=== PATIENT | female | born 1975 | race Caucasian/White ===

== ENCOUNTER 2020-09-16 09:49 | Outpatient (REF) | payer BC, SELFPAY ==
[2020-09-16 12:01] LABS: Hemoglobin 13.5 g/dl (12.0-16.0); Mean Corpuscular HGB Conc 32.9 g/dl (31.0-35.0); Mean Corpuscular Hemoglobin 33.4 pg (27.0-33.0); Mean Corpuscular Volume 101.5 fL (80-98); Mean Platelet Volume 10.1 fL (9.4-12.3); Platelet Count 223 X10*3/uL (160-400); Red Blood Count 4.04 X10*6/uL (4.20-5.50); Red Cell Distribution Width 12.3 % (11.0-16.0); White Blood Count 9.5 X10*3/uL (4.8-10.8)
[2020-09-16 12:35] LABS: Thyroid Stimulating Hormone 1.42 uIU/mL (0.32-4.0)
[2020-09-17 08:59] LABS: BV Int Neg Control Negative (Negative); BV Int Pos Control Positive (Positive)
[2020-09-17 09:47] LABS: C. trachomatis RNA TMA NOT DETECTED (NOT DETECTED); N. gonorrhoeae RNA TMA NOT DETECTED (NOT DETECTED)
[2020-09-18 19:12] LABS: HPV mRNA E6/E7 rflx Not Detected (Not Detected)
== END 2020-09-16 09:50 | disposition home or self-care (01) ==
LOC: HO.LAB 09:49
PROVIDERS: PCP Internal Medicine; Visit Provider Advanced Practice Midwife
DX: Z01.411 Encounter for gynecological examination (general) (routine) with abnormal findings (principal); Z11.51 Encounter for screening for human papillomavirus (HPV); N93.9 Abnormal uterine and vaginal bleeding, unspecified; N92.1 Excessive and frequent menstruation with irregular cycle
CPT/HCPCS: 36415; 84443; 85027; 87480; 87491; 87510; 87591; 87624; 87660; 88141; 88142

== ENCOUNTER → 2021-09-17 09:44 | Outpatient (BNVA) | payer BC, SELFPAY | PROVIDERS: PCP Internal Medicine; Visit Provider Advanced Practice Midwife ==

== ENCOUNTER 2021-10-03 08:58 | Outpatient (REF) | payer BC, SELFPAY ==
--- NOTE | ~2021-10-03 | MM_ITS ---
EXAMINATION: MM SCREENING DIGITAL BREAST TOMOSYNTHESIS, BILATERAL CLINICAL INFORMATION: Screening. Asymptomatic. Family history breast cancer, mother. The lifetime risk of breast cancer based on the Tyrer-Cuzick Model is 28%. COMPARISON: Outside mammography: 04/02/2019 ([facility], baseline) TECHNIQUE: Digital breast tomosynthesis is performed in both the craniocaudal and mediolateral oblique views along with computer-aided detection (CAD). Synthesized 2D images are generated from the tomosynthesis. FINDINGS: The breasts are heterogeneously dense, which may obscure small masses (ACR BI-RADS breast composition Category c). There are no significant masses, abnormal calcifications, or other abnormalities. Parenchymal pattern is similar to prior outside exam. The axilla and skin contours are unremarkable. MM/MM tomosynthesis screening BI IMPRESSION: No significant change from prior outside baseline exam. ASSESSMENT: BI-RADS 1: Negative RECOMMENDATION: 1. Routine annual mammography screening. 2. The lifetime risk of breast cancer based on the Tyrer-Cuzick Model is 28%. Additional annual adjunct screening with breast MRI may be of benefit in women with a risk score of 20% or greater. This patient's information was entered into a reminder system with a target due date for their next mammogram.
== END 2021-10-03 08:59 | disposition home or self-care (01) ==
LOC: HO.MAMMO 08:58
PROVIDERS: Visit Provider Advanced Practice Midwife
DX: Z12.31 Encounter for screening mammogram for malignant neoplasm of breast (principal)
CPT/HCPCS: 77063; 77067

== ENCOUNTER 2021-10-08 14:27 | Outpatient (REF) | payer BC, SELFPAY ==
--- NOTE | ~2021-10-08 | US_ITS ---
EXAMINATION: US PELVIS CLINICAL INFORMATION: Abnormal uterine bleeding COMPARISON: None TECHNIQUE: Ultrasound of the pelvis is performed using both transabdominal and transvaginal transducers along with Doppler. Transvaginal imaging is performed due to inadequate visualization transabdominally. FINDINGS: Uterus: The uterus is anteverted and measures 9 x 4.6 x 5 cm. Nabothian cysts are noted at the cervix. The double wall endometrial thickness is 8 mm. The uterus is smooth in contour and has normal myometrial echogenicity. No visible fibroid. Adnexa: Both ovaries are visualized. There is normal color flow to the adnexa. There is no ovarian torsion. There is no pelvic ascites or fluid collection. Right ovary measures 2.6 x 1.6 x 1.3 cm. Left ovary measures 3.1 x 2.2 x 2.6 cm. Abdominal follicle present with no adnexal mass. US/US pelvic and transvaginal IMPRESSION: No suspicious findings. Normal appearance of the uterus.
== END 2021-10-08 14:28 | disposition home or self-care (01) ==
LOC: HO.US 14:27
PROVIDERS: PCP Internal Medicine; Visit Provider Obstetrics & Gynecology
DX: N93.9 Abnormal uterine and vaginal bleeding, unspecified (principal)
CPT/HCPCS: 76830; 76856

== ENCOUNTER 2021-10-22 10:04 | Outpatient (REF) | payer BC, SELFPAY ==
[2021-10-27 04:16] LABS: HPV 16 RNA NOT DETECTED (NOT DETECTED); HPV mRNA E6/E7 rflx Detected (Not Detected)
== END 2021-10-22 10:05 | disposition home or self-care (01) ==
LOC: HO.LAB 10:04
PROVIDERS: PCP Internal Medicine; Visit Provider Advanced Practice Midwife
DX: Z01.411 Encounter for gynecological examination (general) (routine) with abnormal findings (principal); Z11.51 Encounter for screening for human papillomavirus (HPV); R87.610 Atypical squamous cells of undetermined significance on cytologic smear of cervix (ASC-US); Z71.2 Person consulting for explanation of examination or test findings
CPT/HCPCS: 81025; 87624; 87625; 88142

== ENCOUNTER 2021-12-03 08:52 | Outpatient (REF) | payer BC, SELFPAY | END 2021-12-03 08:53 | disposition home or self-care (01) | LOC: HO.LAB 08:52 | PROVIDERS: PCP Internal Medicine; Visit Provider Obstetrics & Gynecology | DX: R87.610 Atypical squamous cells of undetermined significance on cytologic smear of cervix (ASC-US) (principal); R87.810 Cervical high risk human papillomavirus (HPV) DNA test positive; Z32.02 Encounter for pregnancy test, result negative | CPT/HCPCS: 57456; 81025; 88305 ==

== ENCOUNTER 2022-12-30 08:55 | Outpatient (REF) | payer BC, SELFPAY ==
[2023-01-06 02:08] LABS: HPV mRNA E6/E7 rflx Not Detected (Not Detected)
== END 2022-12-30 08:56 | disposition home or self-care (01) ==
LOC: HO.LNP 08:55
PROVIDERS: PCP Internal Medicine; Visit Provider Advanced Practice Midwife
DX: Z01.419 Encounter for gynecological examination (general) (routine) without abnormal findings (principal); Z11.51 Encounter for screening for human papillomavirus (HPV)
CPT/HCPCS: 87624; 88142

== ENCOUNTER 2023-01-03 07:54 | Outpatient (REF) | payer BC, SELFPAY ==
--- NOTE | ~2023-01-03 | MM_ITS ---
EXAMINATION: MM DIAGNOSTIC DIGITAL BREAST TOMOSYNTHESIS, BILATERAL US DIAGNOSTIC ULTRASOUND BREAST, LEFT CLINICAL INFORMATION: 47-year-old with new palpable mass for 2 weeks posterior upper outer left breast, BB size. Family history breast cancer, mother (age 66). TC score 27%. COMPARISON: Mammography: 10/03/2021; 04/02/2019 ([facility]) TECHNIQUE: Digital breast tomosynthesis is performed in both the craniocaudal and mediolateral oblique views along with computer-aided detection (CAD). Synthesized 2D images are generated from the tomosynthesis. Ultrasound left breast is targeted to the area of clinical concern upper outer quadrant using grayscale imaging and color Doppler. Patient is able to directly point to the area of palpable concern at time of imaging. FINDINGS: The breasts are heterogeneously dense, which may obscure small masses (ACR BI-RADS breast composition Category c). Breast tissue composition borders on extremely dense. Parenchymal pattern is similar to prior exams and there is no developing density or interval architectural abnormality. No abnormal calcifications. There are no significant masses, abnormal calcifications, or other abnormalities. No mammographic correlate for patient's symptoms. The axilla and skin contours are unremarkable. Ultrasound demonstrates a 3 x 5 mm nodule with some internal branching color flow likely intramammary node close to area of palpable concern. On clinical assessment, the palpable finding is clearly palpable just beneath the skin. There is no architectural abnormality. No cyst. No skin thickening. Results are discussed with the patient at time of visit. The finding on ultrasound may correspond to the palpable concern. This could represent a tiny intramammary node although central fatty hilus is not well appreciated. The small size may preclude reliable ultrasound-guided sampling. Given that the lesion is clearly palpable and just beneath the skin, surgical consult is recommended for further assessment and management recommendation including excision if clinically indicated. MM/MM tomosynthesis diagnostic BI IMPRESSION: -No mammographic evidence of malignancy. -Question small ultrasound correlate for palpable concern, possibly an intramammary node. The small size may preclude reliable ultrasound-guided sampling. Given that the lesion is clearly palpable and just beneath the skin, surgical consult is recommended for further assessment and management recommendation including excision if clinically indicated. ASSESSMENT: BI-RADS 4: Suspicious (subcategory 4A: Low suspicion for malignancy) RECOMMENDATION: Surgical consult. This patient's information was entered into a reminder system with a target due date for their next mammogram.
== END 2023-01-03 07:55 | disposition home or self-care (01) ==
LOC: HO.MAMMO 07:54
PROVIDERS: Visit Provider Advanced Practice Midwife
DX: N63.21 Unspecified lump in the left breast, upper outer quadrant (principal)
CPT/HCPCS: 76642; 77062; 77066

== ENCOUNTER → 2023-01-07 09:54 | Outpatient (BNVA) | payer BC, SELFPAY | PROVIDERS: PCP Internal Medicine; Referring Provider Radiology Diagnostic Radiology; Visit Provider Surgery ==

== ENCOUNTER 2023-01-24 06:05 | Day surgery (SDC) | payer BC, SELFPAY ==
[2023-01-20 09:52] VITALS: BMI 16.6
--- NOTE | 2023-01-21 09:33 | PC.NURSE ---
HX substance use & current use of Suboxone discussed with anesthesia Dr Regan. Per anesthesia, no urine drug screen to be collected day of surgery.
[2023-01-24] MEDS: Lactated Ringers 1,000 ML 100 ML IVCONT (06:25)
[2023-01-24 06:28] LABS: UPreg QC Valid YES; Urine Pregnancy NEGATIVE (NEGATIVE)
[2023-01-24 06:32] VITALS: BP 104/65; PULSE 74; RESP 18; TEMP 36.6; O2SAT 95
--- NOTE | 2023-01-24 07:18 | HO.ANESPROP2 ---
[facility] Active Problems Active Problems: All Active Problems (Updated 01/07/23 @ 10:44 by aMik Jose MD) Encounter for annual routine gynecological examination (Acute) Abnormal uterine bleeding (AUB) (Acute) Encounter for screening mammogram for malignant neoplasm of breast (Acute) Encounter to discuss test results (Acute) ASCUS with positive high risk HPV cervical (Acute) Mass of left breast (Acute) Past Medical History Medical History Hx of abnormal cervical Pap smear Family History Family History Mother History of breast cancer, Onset Age: 64 Paternal Aunt Ovarian cancer Surgical History Surgical History Hx of section History of Problems with Anesthesia: No Social History Social History Alcohol intake: current Alcohol intake frequency: a few times a month Patient Tobacco Use Status: Current everyday Tobacco user Cigarettes Per Day: 5 Smoked in Last 30 Days: Yes Patient Interested in Nicotine Replacement: No Substance Use Type: Former Substance User Are you DNR?: No Advance Directives: No Advance Directives Information Provided: Yes Nutrition Risks: No Nutritional Risk FDLMP: ended tuesday Sexual orientation: Straight/Heterosexual Gender identity: Female Meds Allergies Allergy/AdvReac Type Severity Reaction Status Date / Time No Known Allergies Allergy Verified 01/24/23 06:36 [No Known Allergies*] Active Medications: Current Medications Lactated Ringer's (Lr) 1,000 mls @ 100 mls/hr IVCONT .Q10H MAMTA Last Admin: 01/24/23 06:25 Dose: 100 mls/hr Home Medications Medication Instructions Recorded Confirmed Last Taken Type buprenorphine 8 mg-naloxone 2 mg 1 film buccal DAILY 12/30/22 01/20/23 01/17/23 History sublingual film (Suboxone) Exam Exam Date and Time: January 24, [id number] Height,Weight and Vital Signs: Height 5 ft 5 in Weight 45.359 kg Last Vital Signs Temp 97.9 F 01/24/23 06:32 Pulse 74 01/24/23 06:32 Resp 18 01/24/23 06:32 BP 104/65 01/24/23 06:32 Pulse Ox 95 01/24/23 06:32 O2 Del Method Room Air 01/24/23 06:32 Pertinent Lab Results Pertinent Lab Results: Laboratory Tests 01/24/23 06:00 Urine Test NEGATIVE Airway Mallampati Class: II TM Dist: >3cm Neck ROM: Full Loose/Missing/Broken Teeth: Yes and Upper (chipped upper central incisors) Heart: RRR Lungs: CTA Assessment and Plan Assessment Anesthesia Assessment: Anesthesia Plan Discussed and Chart Reviewed Final Anesthetic Review History of Problems with Anesthesia: No NPO: Yes ASA Class: II Final Preanesthetic Review: Meds/Allgs Chart Reviewed, Consent Obtained/Reviewed and Anes Risks/Benef Reviewed Patient Risk: Low Procedure Risk: Low Anesthetic Plan Anesthetic Plan: GA Disposition: Standard PACU
--- NOTE | 2023-01-24 07:29 | MHC.SHP ---
Pre-Procedural Eval Section A Date of Service: 01/24/23 The patient is an INPATIENT: No Changes since office visit: Yes Patient answered all questions; No Cold of Flu in the past 2 weeks, No New Medical Problems and No Changes in Medication The History & Physical has been completed within 30 days and I have reviewed it.: Yes Section B Chief Complaint: Unspecified lump in the left breast, unspecified q Allergies: Allergies Allergy/AdvReac Type Severity Reaction Status Date / Time No Known Allergies Allergy Verified 01/24/23 06:36 [No Known Allergies*] Plan Diagnosis/Plan: Unchanged I have reviewed the history and physical and performed a pertinent physical examination on my patient. No changes have occurred unless specified. Time Spent With Patient Time: Total time managing care of this patient today ____ minutes.
--- NOTE | 2023-01-24 08:07 | W.PM.OPN ---
Operative Note Operative Note Date of Service: 01/24/23 Narrative: Preoperative diagnosis: Left breast mass Postoperative diagnosis: same Procedure: left breast lumpectomy Surgeon: Maik Jose MD Cooler Operator: Cindy Akins PA-C Anesthesia: general LMA Indications for procedure: 47-year-old female with a palpable mass located the upper outer quadrant left breast. On examination there is a 1 cm mass mobile within the breast tissue suggestive of a fibroadenoma. Patient has requested excision of this palpable mass. Operative findings: 1 cm palpable mass in the upper outer quadrant just outside of the axilla. Specimen: Left breast mass Estimated blood loss: 2 mL Complications: none Procedure details: patient was brought to the OR placed in a supine position. After administering general anesthesia patient's left breast was prepped with ChloraPrep and draped in a sterile fashion. A surgical time-out was called the consent confirmed. Patient received preoperative antibiotics and Venodyne boots were in place. Local anesthesia was then infiltrated in a curvilinear fashion over the palpable mass in the upper outer quadrant. Incision was then made with a scalpel carried out through subcutaneous tissue. Superior inferior skin flaps were then created with left cautery. The mass was grasped with an Allis clamp. Sharp dissection with the Metzenbaum scissors was then used to excise the lesion. This was passed off the table and sent to pathology for further examination. The incision was irrigated with saline solution and suctioned dry. Hemostasis was assured using electrocautery. Dermis was then reapproximated using interrupted 3-0 Polysorb sutures. Skin was closed using a running subcuticular 4-0 Polysorb suture. Steri-Strips, 2 x 2 gauze and Tegaderm were then applied. The patient tolerated the procedure well. Sponge, instrument, and needle counts were reported as correct. The patient was transferred to PACU in stable condition.
[2023-01-24 08:15] VITALS: BP 124/77; PULSE 67; RESP 18; TEMP 36.4; O2SAT 100
[2023-01-24 08:20] VITALS: BP 121/73; PULSE 74; RESP 20; O2SAT 100
[2023-01-24 08:25] VITALS: BP 109/67; PULSE 67; RESP 18; O2SAT 100
[2023-01-24 08:30] VITALS: BP 104/63; PULSE 63; RESP 18; O2SAT 100
[2023-01-24 08:45] VITALS: BP 113/74; PULSE 65; RESP 18; TEMP 36.4; O2SAT 100
== END 2023-01-24 09:02 | disposition home or self-care (01) ==
PROVIDERS: Anesthesiology; PCP Internal Medicine; Visit Provider Surgery
PROC: (CPT 19301; principal; 2023-01-24 07:30)
DX: C50.412 Malignant neoplasm of upper-outer quadrant of left female breast (principal); Z17.0 Estrogen receptor positive status [ER+]; Z80.3 Family history of malignant neoplasm of breast; N60.32 Fibrosclerosis of left breast; F11.20 Opioid dependence, uncomplicated; F17.210 Nicotine dependence, cigarettes, uncomplicated
CPT/HCPCS: 19301; 81025; 88307; 88341; 88342; 88360; J0690; J1100; J2250; J2405; J2795; J3010

== ENCOUNTER → 2023-01-24 06:05 | Outpatient (BNV) | payer BC, SELFPAY | PROVIDERS: PCP Internal Medicine; Visit Provider Surgery | DX: N63.20 Unspecified lump in the left breast, unspecified quadrant (principal) | CPT/HCPCS: 19301 ==

== ENCOUNTER 2023-02-01 09:49 | Outpatient (AMB) | payer BC, SELFPAY ==
--- NOTE | 2023-02-01 09:59 | MHC.OFFVIS ---
Intake Vital Signs 02/01/23 10:05 Weight 98 lb BP 125/88 Blood Pressure Location Rt brachial Position Standing Pulse 84 Intake Visit Reasons: S/P Lt. breast lumpectomy Intake Note: This patient presents for a post-op assessment status post left breat lumpectomy. Patient denies complaints at this time pertaining to surgery. City Treasurer Required: No Accompanied by: Self / Same As Patient Allergies No Known Allergies [No Known Allergies*] Allergy (Verified 02/01/23 10:03) HPI HPI Comments History of Present Illness Details 47-year-old female patient with a strong family history of breast cancer presenting with a palpable mass in the left breast at the 1 o'clock position. She 1st noted the lump several weeks prior to evaluation and was certain the lump was not present previously. She denies any pain associated with the lump. Workup with mammogram and ultrasound could not clearly identify a suspicious finding in this location. Surgical consultation was recommended due to the discrete nature of the palpable lump. She reports her mother developed breast cancer at the age of 64 after many years of a palpable lump. She also has a paternal aunt with ovarian cancer. She is . She underwent an excisional biopsy on 01/24/2023. Pathology revealed an incidental invasive ductal carcinoma, grade 1, 5 mm involving nodular dense stromal fibrosis. In addition ductal carcinoma in-situ, intermediate grade, cribriform and solid type was identified. IDC and DCIS is less than 1 mm from the inked resection margin and lymphovascular invasion is not identified. ER/MS positive, HER2 Yrn negative, Ki-67 expression low. (pT1a NX). She returns today to review the results. [facility], [facility] Medical History Hx of abnormal cervical Pap smear Surgical History History of lumpectomy of left breast (01/24/23) Hx of section Family History Mother History of breast cancer, Onset Age: 64 Paternal Aunt Ovarian cancer Social History Alcohol intake: current Alcohol intake frequency: a few times a month Patient Tobacco Use Status: Current everyday Tobacco user Cigarettes Per Day: 5 Substance Use Type: Former Substance User Sexual orientation: Straight/Heterosexual Gender identity: Female Female Reproductive History Menstrual Age of Menarche: 11 Review of Systems Const All systems reviewed & are unremarkable except as noted in HPI and below Physical Exam Vital Signs: Last Vital Signs Pulse 84 02/01/23 10:05 BP 125/88 02/01/23 10:05 Const General: no acute distress Nutritional Appearance: thin Orientation/consciousness: patient oriented x3 Limitations: no limitations HEENT Head: Yes normocephalic and Yes atraumatic Chest Other: Incision in the upper outer quadrant left breast is clean and intact with surrounding ecchymosis. No bleeding or discharge noted. Skin Other: Warm, dry, no rash Neuro General: patient oriented x3 Extrem General: Yes no clubbing, cyanosis or edema Assessment & Plan Assessment & Plan (1) Invasive ductal carcinoma of left breast: Code(s): C50.912 - Malignant neoplasm of unspecified site of left female breast (2) Ductal carcinoma in situ of left breast: Code(s): D05.12 - Intraductal carcinoma in situ of left breast Plan 47-year-old female patient presenting with a palpable mass in the left breast at the upper outer quadrant not clearly identified by mammogram or ultrasound. Patient returns status post left breast lumpectomy with findings of an incidental invasive ductal carcinoma with DCIS, grade 1, ER/MS positive, HER2 Yrn negative and Ki-67 low. Pathology results were reviewed with the patient and treatment options discussed. I recommended a wider excision to assure negative margins as well as a sentinel node biopsy left axilla. After a discussion of the procedure, risks, and alternatives, she consents to a left breast wider excision with sentinel node biopsy left axilla. She will be scheduled at her earliest convenience. We discussed next steps including medical and radiation oncology evaluations. She expressed understanding and agrees with the plan. Coding Level of Care Code Global (46505) Diagnoses Invasive ductal carcinoma of left breast C50.912 Ductal carcinoma in situ of left breast D05.12
[2023-02-01 10:05] VITALS: BP 125/88; PULSE 84
== END 2023-02-01 10:27 | disposition home or self-care (01) ==
PROVIDERS: PCP Internal Medicine; Visit Provider Surgery
DX: D05.12 Intraductal carcinoma in situ of left breast (principal)
CPT/HCPCS: 99024

== ENCOUNTER → 2023-02-01 09:49 | Outpatient (BNVA) | payer BC, SELFPAY | PROVIDERS: PCP Internal Medicine; Visit Provider Surgery ==

== ENCOUNTER → 2023-02-09 10:41 | Outpatient (BNV) | payer BC, SELFPAY | PROVIDERS: PCP Internal Medicine; Visit Provider Internal Medicine | DX: C50.912 Malignant neoplasm of unspecified site of left female breast (principal) | CPT/HCPCS: 99204; 99214 ==

== ENCOUNTER → 2023-02-23 08:53 | Outpatient (BNVA) | payer BC, SELFPAY | PROVIDERS: PCP Internal Medicine; Visit Provider Surgery ==

== ENCOUNTER 2023-03-21 06:45 | Day surgery (SDC) | payer BC, SELFPAY ==
--- NOTE | 2023-03-18 08:55 | HO.ANESPROP2 ---
HPI - Anesthesia Eval Consult details Narrative: 47yo F for Left wide Breast Mass Excision Carcinoma, Left Crawford Node Biopsy axilla PMFSH Active Problems Active Problems: All Active Problems (Updated 02/09/23 @ 10:56 by Kera Beasley MD) Ductal carcinoma in situ of left breast (Acute) Invasive ductal carcinoma of left breast (Acute) Encounter for annual routine gynecological examination (Acute) Abnormal uterine bleeding (AUB) (Acute) Encounter for screening mammogram for malignant neoplasm of breast (Acute) Encounter to discuss test results (Acute) ASCUS with positive high risk HPV cervical (Acute) Mass of left breast (Acute) Past Medical History Medical History Hx of abnormal cervical Pap smear Family History Family History Mother History of breast cancer, Onset Age: 64 Paternal Aunt Ovarian cancer Surgical History Surgical History History of lumpectomy of left breast (01/24/23) Hx of section History of Problems with Anesthesia: No Social History Social History Household Members: Spouse and Children Housing: House Alcohol intake: current Alcohol intake frequency: a few times a month Patient Tobacco Use Status: Current everyday Tobacco user Tobacco use type: Cigarette Substance Use Type: Former Substance User service: No Current occupational status: unemployed Sexual orientation: Straight/Heterosexual Gender identity: Female Meds Allergies Allergy/AdvReac Type Severity Reaction Status Date / Time No Known Allergies Allergy Verified 03/21/23 06:59 [No Known Allergies*] Exam Exam Date and Time: March 18, 2023 0855 Assessment and Plan Assessment Anesthesia Assessment: Chart Reviewed Final Anesthetic Review History of Problems with Anesthesia: No
[2023-03-21] VITALS (7 sets, daily range): BP systolic 98–139; BP diastolic 58–88; PULSE 66–87; RESP 16–18; TEMP 36.6; O2SAT 94–97; BMI 16.3
--- NOTE | ~2023-03-21 | NM_ITS ---
EXAMINATION: NM LYMPH SCINTIGRAPHY CLINICAL INFORMATION: Left breast cancer. COMPARISON: None available. TECHNIQUE: Following explanation of the left breast sentinel node procedure, benefits and risk, a written consent was obtained. Patient was placed supine on the nuclear medicine table and the left breast area around the areola was cleaned and draped in usual sterile manner. Initially 4% lidocaine cream was applied around the areola. Then 0.125 mCi of 99m technetium Lymphoseek was injected in 4 equal doses in 4 quadrants around the left breast areola and imaging obtained 30 minutes later. FINDINGS: On left breast imaging, there is isotope activity in 4 quadrants around the left breast areola. There is isotope activity along the left lateral breast and 2 lymph nodes along the left anterior axilla. No additional lymph nodes seen. NM/NM sentinel node w imaging IMPRESSION: Two left axillary lymph nodes seen on left breast lymphoscintigraphy.
--- OUTSIDE RECORDS SUMMARY | 2023-03-21 06:47 | XMS_ITS | Continuity of Care Document ---
Author Name Unknown Organization [facility] Address [address] [place] [address]- Care Team Providers Care Is Support Analyst Name Role Phone Brendan Lewis MD Primary Care Physician Encounter [facility] Date(s): 01/18/23 - 02/17/23 [facility] [address] [place] [address]- Attending Physician: Andrés Fletcher Admitting Physician: Andrés Fletcher Referring Physician: AdmtrAndrés Allergies, Adverse Reactions, Alerts Substance Reaction Severity Status gabapentin C/O - a headache Nausea present Tunnel vision Active Immunizations Given and Recorded Vaccine Date Status Refusal Reason tetanus/diphtheria/pertussis, acel(Tdap) 01/18/23 Given tetanus/diphtheria/pertussis, acel(Tdap) 09/21/12 Given SARS-CoV-2 (COVID-19) Ad26 vaccine 10/19/20 Given influenza virus vaccine, inactivated 1 06/22/17 Gi tylor influenza virus vaccine, inactivated 2 06/22/13 Gi tylor 1Admin Note: done @ [facility] form received 2Result Comment: [06/22/2013] given w/o incident...AA Medications mirtazapine 7.5 mg oral tablet 1 tablet, By Mouth, Daily at bedtime, # 30 tablet, 5 Refills, Maintenance, 07/06/22 12:58:00 EST, [id number], 163, cm, 11/17/20 18:40:00 EDT, Height Start Date: 07/06/22 Status: Ordered Problem List Condition Confirmation Course Effective Dates Status H ealth Status Informant Compulsive tobacco user syndrome Confirmed Active Family history of alcoholism (mom) Confirmed Active Family history of breast cancer in female (mom) Confirmed Active Family history of malignant neoplasm of ovary (paternal aunt) Confirmed Active Family history of Parkinson's disease (paternal aunt) Confirmed Active Family history: Cardiovascular disease (uncle) Confirmed Active Family history: Osteoporosis (mom) Confirmed Active History of - chronic ear infection Confirmed Active Sacroiliac joint pain Confirmed Active Social History Social History Type Response Smoking Status Current some day smo ker; Tobacco user in household: No; Type: Cigarettes; Previous treatment: Medications; Interested in cessation: Yes; Tobacco use times per day: 6; Number of years: 20; Total pack years: 110; Cessation attempts: 10; entered on: 06/22/13 Sex Patient Care team information Care Team Personnel Name: Brendan Lewis MD Position: [facility] Physician - Primary Care Member Role: PCP Address: Address: [address] [place] [address] Adult [place] [address]- Name: Jacquelyn Olvera RN Position: [facility] AMB Nurse Member Role: Primary Care Nurse Care Team Related Persons Name: MICHELINE ROCK Address: [address] [address]
[2023-03-21] MEDS: Lactated Ringers 1,000 ML 100 ML IVCONT (07:02)
[2023-03-21 07:09] LABS: UPreg QC Valid YES; Urine Pregnancy NEGATIVE (NEGATIVE)
--- NOTE | 2023-03-21 07:20 | PC.NURSE ---
dr. mccarthy aware and okay to proceed. patient started antibiotic for left upper tooth infection last tuesday for a tooth that is to be extracted. did not take this morning.
--- NOTE | 2023-03-21 08:53 | MHC.SHP ---
Pre-Procedural Eval Section A Date of Service: 03/21/23 The patient is an INPATIENT: No Changes since office visit: Yes Patient answered all questions; No Cold of Flu in the past 2 weeks, No New Medical Problems and No Changes in Medication The History & Physical has been completed within 30 days and I have reviewed it.: No Section B Chief Complaint: Malignant neoplasm of unspecified site of left fem Details of Present Illness: no change in symptoms Relevant Family History (Specify if Yes): No Present Medications: see Short Stay Collaborative assessment Medical History: No relevant PMH History of Previous Operations: Relevant previous surgery/procedure and date(s) (left breast lumpectomy) Allergies: Allergies Allergy/AdvReac Type Severity Reaction Status Date / Time No Known Allergies Allergy Verified 03/21/23 06:59 [No Known Allergies*] Review of Systems Sugical H&P ROS: Negative: Constitution, Cardiovascular, Respiratory, Neurological, Psychiatric, Hem-Onc, Allergic/Immunologic, Gastrointestinal, Genitourinary, Musculoskeletal, Integumentary, Endocrine and Eyes/Ears/Nose/Throat Exam Surgical H&P Exam: Normal: HEENT, Normal: Heart, Normal: Lungs, Normal: Extremities, Normal: Abdomen, Normal: Skin and Normal: Neurological Plan Diagnosis/Plan: Unchanged I have reviewed the history and physical and performed a pertinent physical examination on my patient. No changes have occurred unless specified. Time Spent With Patient Time: Total time managing care of this patient today ____ minutes.
--- NOTE | 2023-03-21 09:41 | HO.ANESPROP2 ---
ON LICENSE OF [facility] Active Problems Active Problems: All Active Problems (Updated 02/09/23 @ 10:56 by Kera Beasley MD) Ductal carcinoma in situ of left breast (Acute) Invasive ductal carcinoma of left breast (Acute) Encounter for annual routine gynecological examination (Acute) Abnormal uterine bleeding (AUB) (Acute) Encounter for screening mammogram for malignant neoplasm of breast (Acute) Encounter to discuss test results (Acute) ASCUS with positive high risk HPV cervical (Acute) Mass of left breast (Acute) Past Medical History Medical History Hx of abnormal cervical Pap smear Functional capacity: independent ambulation Patient : No Family History Family History Mother History of breast cancer, Onset Age: 64 Paternal Aunt Ovarian cancer Surgical History Surgical History History of lumpectomy of left breast (01/24/23) Hx of section History of Problems with Anesthesia: No Social History Social History Household Members: Spouse and Children Housing: House Alcohol intake: current Alcohol intake frequency: a few times a month Patient Tobacco Use Status: Current everyday Tobacco user Tobacco use type: Cigarette Smoked in Last 30 Days: Yes Patient Interested in Nicotine Replacement: No Substance Use Type: Former Substance User Are you DNR?: No Advance Directives: No Advance Directives Information Provided: Yes Nutrition Risks: No Nutritional Risk service: No Current occupational status: unemployed Sexual orientation: Straight/Heterosexual Gender identity: Female Meds Allergies Allergy/AdvReac Type Severity Reaction Status Date / Time No Known Allergies Allergy Verified 03/21/23 06:59 [No Known Allergies*] Active Medications: Current Medications Lactated Ringer's (Lr) 1,000 mls @ 100 mls/hr IVCONT .Q10H MAMTA Last Admin: 03/21/23 07:02 Dose: 100 mls/hr Exam Exam Date and Time: March 21, 2023 0941 Height,Weight and Vital Signs: Height 5 ft 5 in Weight 44.452 kg Last Vital Signs Temp 97.9 F 03/21/23 07:17 Pulse 66 03/21/23 07:17 Resp 18 03/21/23 07:17 BP 98/63 03/21/23 07:17 Pulse Ox 96 03/21/23 07:17 O2 Del Method Room Air 03/21/23 07:17 Pertinent Lab Results Pertinent Lab Results: Laboratory Tests 03/21/23 07:00 Urine Test NEGATIVE Airway Mallampati Class: II TM Dist: >3cm Neck ROM: Full Heart: RRR Lungs: CTA Assessment and Plan Final Anesthetic Review History of Problems with Anesthesia: No NPO: Yes ASA Class: II Final Preanesthetic Review: Meds/Allgs Chart Reviewed, Consent Obtained/Reviewed and Anes Risks/Benef Reviewed Patient Risk: Low Procedure Risk: Low Anesthetic Plan Anesthetic Plan: GA Disposition: Standard PACU
--- NOTE | 2023-03-21 10:09 | PC.NURSE ---
IV inserted by dr. hathaway. patient just returned to [facility] from [facility].
[2023-03-21] MEDS: Albuterol Sulfate (0.083%) 2.5 MG/3 ML VIAL.NEB INHALE (10:24)
--- NOTE | 2023-03-21 11:16 | PC.NURSE ---
patient crying often at bedside. warm blankets, tissues given, patient refusing wanting to talk. was educated many times as to her early arrival being due to nuc. med. appointment as part of this procedure. patient was refusing respiratory treatment initially with respiratory therapist and then was in agreeance after education.
--- NOTE | 2023-03-21 12:04 | W.PM.OPN ---
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 Subsequent lumpectomy revealed incidental invasive ductal carcinoma with DCIS extending to 1 mm of the margin. She presents today for wider excision to assure complete removal as well as sentinel node biopsy. Operative findings: Scar tissue from previous excision noted in the upper outer quadrant at approximately the 2 o'clock position. A single sentinel node was identified with no other palpable nodes in the axilla. Specimen: Left breast wide excision invasive ductal carcinoma with DCIS, sentinel node 1. Estimated blood loss: 2 mL Complications: None Procedure details: Patient was brought to the OR placed in a supine position. After administering general anesthesia patient's left breast and axilla were prepped with ChloraPrep and draped in a sterile fashion. A surgical time-out was called the consent confirmed. Patient received preoperative antibiotics and Venodyne boots were in place. Local anesthesia was infiltrated around the previous incision an elliptical incision created at the upper outer quadrant extending the previous incision superiorly and inferiorly. Superior inferior skin flaps were then created using electrocautery. Core of tissue extending down to the chest wall was then performed. The specimen was removed and marked with a long suture on the lateral margin, short suture on the superior margin and looped suture on the posterior margin. This was passed off the table and sent to pathology for further examination. Attention was then directed through the axilla. The incision is high in the upper outer quadrant decision was made to avoid a 2nd incision. The clavipectoral fascia was entered and the axillary fat pad examined. Palpable node was identified and found to be the sentinel node. This was grasped with Allis clamp and brought out through the incision. Electrocautery was then used to dissect the node from the surrounding axillary tissue. Scanned with the gamma probe confirmed radio activity. The axilla was then re-examined with the gamma probe and no additional radio activity identified. No other palpable nodes could be identified as well. The wounds were irrigated with saline solution and suctioned dry. Clavipectoral fascia was closed using a 3-0 Polysorb suture. Deep breast tissue was then reapproximated using interrupted 3-0 Polysorb sutures. Dermis was closed using interrupted 3-0 Polysorb sutures. Skin was then closed using a running subcuticular 4-0 Polysorb suture. Steri-Strips, 2 x 2 gauze and Tegaderm were then applied. The patient tolerated the procedure well. Sponge, instrument, and needle counts reported as correct. The patient was transferred to PACU in stable condition. Breast [place] Node Biopsy Substrate(s) used for sentinel node biopsy in the non-neoadjuvant setting: Radiotracer Substrate(s) used for sentinel node biopsy in the neoadjuvant setting: N/A All colored nodes or non-colored nodes present at the end of a dye filled lymphatic channel were removed, if dye was used as the substrate for localization: N/A All significantly radioactive nodes were removed, if radionuclide was used as the substrate for localization: Yes All palpably suspicious nodes were removed, if present: Yes If clips were placed in pathology-involved nodes, those nodes were identified and removed: N/A General Surg. - Synoptic Notes Breast [place] Node Biopsy Substrate(s) used for sentinel node biopsy in the non-neoadjuvant setting: Radiotracer Substrate(s) used for sentinel node biopsy in the neoadjuvant setting: N/A All colored nodes or non-colored nodes present at the end of a dye filled lymphatic channel were removed, if dye was used as the substrate for localization: N/A All significantly radioactive nodes were removed, if radionuclide was used as the substrate for localization: Yes All palpably suspicious nodes were removed, if present: Yes If clips were placed in pathology-involved nodes, those nodes were identified and removed: N/A
--- NOTE | 2023-03-21 12:28 | HO.POSTANES ---
Post Anesthesia Evaluation Post Anesthesia Evaluation Date of Service: 03/21/23 Vital Signs: Vital Signs Temp Pulse Resp BP Pulse Ox O2 Del Method 03/21/23 12:22 97.8 F 84 16 108/88 94 Room Air 03/21/23 10:25 87 16 03/21/23 07:17 97.9 F 66 18 98/63 96 Room Air Anesthesia: General LMA Mental Status: Awake Pain Control: Satisfactory Nausea/Vomiting: None Hydration: Adequate Anesthesia-Related Issues: No Anes. Related Issues
[2023-03-21] MEDS: oxyCODONE HCl Immed Release 5 MG TABLET PO (12:40)
== END 2023-03-21 13:20 | disposition home or self-care (01) ==
PROVIDERS: Nurse Practitioner; PCP Internal Medicine; Visit Provider Surgery
PROC: (CPT 19120; principal; 2023-03-21 10:50)
PROC: (CPT 19301; 2023-03-21 10:50)
DX: D05.02 Lobular carcinoma in situ of left breast (principal); Z80.3 Family history of malignant neoplasm of breast; F17.210 Nicotine dependence, cigarettes, uncomplicated
CPT/HCPCS: 19301; 38525; 78195; 81025; 88307; 88342; 94640; A9520; J0131; J0690; J1100; J2250; J2405; J3010

== ENCOUNTER → 2023-03-21 06:45 | Outpatient (BNV) | payer BC, SELFPAY | PROVIDERS: PCP Internal Medicine; Visit Provider Surgery | DX: C50.912 Malignant neoplasm of unspecified site of left female breast (principal) | CPT/HCPCS: 19302; 38525; 38900 ==

== ENCOUNTER 2023-03-31 09:53 | Outpatient (AMB) | payer BC, SELFPAY ==
--- NOTE | 2023-03-31 09:55 | MHC.OFFVIS ---
Intake Vital Signs 03/31/23 10:00 Height 5 ft 5 in Weight 98 lb 8 oz BMI 16.4 BP 140/87 H Blood Pressure Location Lt brachial Position Sitting Pulse 78 Intake Visit Reasons: S/P wide exc. Lt brst Ca, SN bx Intake Note: Patient is seen in office for post op assessment post wide excision of left breast CA. Patient c/o: admits to some bruising for the past 2 days around the axilla, denies any other concerns Office Administrator Required: No Accompanied by: Other Relationship Allergies No Known Allergies [No Known Allergies*] Allergy (Verified 03/31/23 10:00) Medication List - Last Reconciled 03/31/23 by Maik Jose MD cephalexin 500 mg PO Q8H 10 days oxycodone 5 mg PO Q6H PRN HPI HPI Comments History of Present Illness Details 47-year-old female patient with a strong family history of breast cancer presenting with a palpable mass in the left breast at the 1 o'clock position. She 1st noted the lump several weeks prior to evaluation and was certain the lump was not present previously. She denies any pain associated with the lump. Workup with mammogram and ultrasound could not clearly identify a suspicious finding in this location. Surgical consultation was recommended due to the discrete nature of the palpable lump. She reports her mother developed breast cancer at the age of 64 after many years of a palpable lump. She also has a paternal aunt with ovarian cancer. She is . She underwent an excisional biopsy on 01/24/2023. Pathology revealed an incidental invasive ductal carcinoma, grade 1, 5 mm involving nodular dense stromal fibrosis. In addition ductal carcinoma in-situ, intermediate grade, cribriform and solid type was identified. IDC and DCIS is less than 1 mm from the inked resection margin and lymphovascular invasion is not identified. ER/DE positive, HER2 Yrn negative, Ki-67 expression low. (pT1a NX). She returns today to review the results. Wide local excision and sentinel node biopsy was performed on 03/21/2023. Pathology revealed no residual invasive ductal carcinoma or DCIS however LCIS was identified. One sentinel node was negative for metastatic disease. She tolerated the procedure well but does have some soreness in the left axilla. She generally feels well. She previously met with Dr. Beasley and is due to meet with her once again following this procedure. PFSH Medical History Hx of abnormal cervical Pap smear Surgical History History of lumpectomy (03/21/23) History of lumpectomy of left breast (01/24/23) Hx of section Family History Mother History of breast cancer, Onset Age: 64 Paternal Aunt Ovarian cancer Social History Household Members: Spouse and Children Housing: House Alcohol intake: current Alcohol intake frequency: a few times a month Patient Tobacco Use Status: Current everyday Tobacco user Tobacco use type: Cigarette Substance Use Type: Former Substance User service: No Current occupational status: unemployed Sexual orientation: Straight/Heterosexual Gender identity: Female Female Reproductive History Menstrual Age of Menarche: 11 Physical Exam Const General: no acute distress Nutritional Appearance: thin Orientation/consciousness: patient oriented x3 Limitations: no limitations HEENT Head: Yes normocephalic and Yes atraumatic Chest Other: Incision in the upper outer quadrant left breast is clean and intact with surrounding ecchymosis. No bleeding or discharge noted. No hematoma or seroma appreciated. Skin Other: Warm, dry, no rash Neuro General: patient oriented x3 Extrem General: Yes no clubbing, cyanosis or edema Assessment & Plan Assessment & Plan (1) Ductal carcinoma in situ of left breast: Code(s): D05.12 - Intraductal carcinoma in situ of left breast (2) Invasive ductal carcinoma of left breast: Code(s): C50.912 - Malignant neoplasm of unspecified site of left female breast Plan Patient returns following a wider excision of the left breast invasive ductal carcinoma. No residual invasive ductal carcinoma or DCIS is identified however a focus of LCIS was identified. She will follow-up with Dr. Beasley to discuss treatment options and return to our office in 1 month for follow-up examination, sooner p.r.n.. Coding Level of Care Code Global (60018) Diagnoses Ductal carcinoma in situ of left breast D05.12 Invasive ductal carcinoma of left breast C50.912
[2023-03-31 10:00] VITALS: BP 140/87; PULSE 78; BMI 16.4
== END 2023-03-31 10:07 | disposition home or self-care (01) ==
PROVIDERS: PCP Internal Medicine; Visit Provider Surgery
DX: D05.12 Intraductal carcinoma in situ of left breast (principal); C50.912 Malignant neoplasm of unspecified site of left female breast
CPT/HCPCS: 99024

== ENCOUNTER → 2023-03-31 09:53 | Outpatient (BNVA) | payer BC, SELFPAY | PROVIDERS: PCP Internal Medicine; Visit Provider Surgery ==

== ENCOUNTER 2023-11-01 20:05 | Emergency (ER) | payer BC, SELFPAY ==
--- NOTE | ~2023-11-01 | XR_ITS ---
EXAMINATION: XR CHEST CLINICAL INFORMATION: Shortness of breath. COMPARISON: None available. TECHNIQUE: Frontal view of the chest was obtained. FINDINGS: Increased lung volumes with diffuse interstitial thickening. No dense consolidation. No pleural effusion or pneumothorax. Normal appearance of the cardiomediastinal silhouette. Calcific bodies adjacent to the greater tuberosities in both shoulders. XR/XR chest 1V IMPRESSION: 1. Findings suggesting small airways disease with air trapping. No consolidation or pleural effusion. 2. Calcific tendinosis in the bilateral shoulders.
[2023-11-01 20:17] VITALS: BP 140/86; PULSE 104; RESP 16; TEMP 36.8; O2SAT 88; BMI 15.7
--- NOTE | 2023-11-01 20:21 | ECG_ITS ---
Test Reason : SOB Blood Pressure : / mmHG Vent. Rate : 085 BPM Atrial Rate : 085 BPM P-R Int : 138 ms QRS Dur : 080 ms QT Int : 376 ms P-R-T Axes : 078 004 006 degrees QTc Int : 447 ms Normal sinus rhythm Possible Left atrial enlargement Possible Anterior infarct , age undetermined Abnormal ECG No previous ECGs available Referred By: Carol Valentin Electronically Signed By:LUIS ALFREDO DORMAN MD
--- NOTE | 2023-11-01 20:21 | ED.SOB ---
HPI - SOB/Dyspnea General Chief Complaint: Dyspnea Stated Complaint: SOB Time Seen by Provider: 11/01/23 20:55 Source: patient Mode of arrival: ambulatory Limitations: no limitations History of Present Illness HPI Narrative: Patient 48 years old premenopausal diagnosed with left breast DCIS with invasive ductal carcinoma with history of ??COPD using nebulizer at home was diagnose pneumonia at urgent care center 2 months ago since then been coughing mucoid phlegm smoking about 5 cigarettes a day never been told that she has COPD has not seen any lung specialist no fever no chills no chest pain no leg swelling Related Data Previous Rx's ?Medication ?Instructions ?Recorded tamoxifen 20 mg tablet 20 mg PO DAILY #30 tabs 07/18/23 albuterol sulfate 2.5 mg/3 mL 2.5 mg (3 mL) inhalation Q4-6H PRN 11/01/23 (0.083 %) solution for nebulization shortness of breath or wheezing #90 mL cefuroxime axetil 500 mg tablet 500 mg PO BID 7 days #14 tabs 11/01/23 prednisone 20 mg tablet 40 mg (2 x 20 mg) PO DAILY #10 tabs 11/01/23 Allergies Allergy/AdvReac Type Severity Reaction Status Date / Time No Known Allergies Allergy Verified 11/01/23 20:19 [No Known Allergies*] Review of Systems Review of Systems: Yes all other systems are reviewed and are negative PMFSH Past Medical History Medical History Hx of abnormal cervical Pap smear Surgical History History of lumpectomy (03/21/23) History of lumpectomy of left breast (01/24/23) Hx of section Family History Family History Mother History of breast cancer, Onset Age: 64 Paternal Aunt Ovarian cancer Social History Social History Household Members: Spouse and Children Housing: House Alcohol intake: current Alcohol intake frequency: holidays/special occasions only Patient Tobacco Use Status: Current everyday Tobacco user Tobacco use type: Cigarette Smoked in Last 30 Days: Yes Use of substances other than those prescribed or required for medical reasons: No Substance Use Type: Former Substance User Advance Directives: No Advance Directives Information Provided: No Do you have a plan to hurt others: No Plan service: No Current occupational status: unemployed Sexual orientation: Straight/Heterosexual Gender identity: Female Physical Exam Vital Signs: Vital Signs: Last Vital Signs Temp 97.5 F 11/01/23 22:40 Pulse 89 11/01/23 22:40 Resp 12 11/01/23 22:40 BP 126/90 H 11/01/23 22:40 Pulse Ox 94 11/01/23 22:40 O2 Del Method Room Air 11/01/23 22:40 BMI result Body Mass Index 15.7 Appearance: Alert. Oriented X3. No acute distress. Eyes: No pallor or icterus ENT: Pharynx normal. Oral Mucosa moist Neck: Normal inspection. Neck supple. CVS: Normal heart rate and rhythm. Pulses normal. Respiratory: No respiratory distress. Equal air entry bilateral, bilateral wheezing no crackles Abdomen: Soft and nontender. Bowel sounds are present, no mass palpable, no CVA tenderness Skin: Skin warm and dry. Normal skin color. Normal skin turgor. Extremities: No lower extremity edema. No calf tenderness Neuro: Oriented X 3. No motor deficit. No sensory deficit.No cerebellar signs , cranial nerves II-XII intact Course Course Course Narrative: This is an RME: Additional HPI, ROS, PE not included below will be deferred to primary provider. This is a 48-year-old female, with a history of breast cancer on chemotherapy, who presents emergency department with complaints of. Patient went to her oncologist yesterday and was found to be hypoxic in the 80s. She states that her shortness breath has worsened. Not to be 88% in triage. Patient brought back to the main emergency department for further evaluation. Lungs with prolonged expiratory phase wheezing. Plan: Labs, EKG, chest x-ray, further ER evaluation needed. Medications Administered Discontinued Medications Generic Name Dose Route Start Last Admin Trade Name Freq PRN Reason Stop Dose Admin Albuterol/Ipratropium 3 ml 11/01/23 21:16 11/01/23 22:17 Albuterol/Iprat 2.5/0.5mg 3 Ml Ampul.Neb INHALE 11/01/23 21:17 3 ml ONCE ONE Administration Benzonatate 200 mg 11/01/23 21:16 11/01/23 21:41 Benzonatate 100 Mg Capsule PO 11/01/23 21:17 200 mg ONCE ONE Administration Cefuroxime Axetil 500 mg 11/01/23 22:20 11/01/23 22:37 Cefuroxime Axetil 500 Mg Tablet PO 11/01/23 22:21 500 mg ONCE ONE Administration Methylprednisolone Sodium Succinate 125 mg 11/01/23 21:16 11/01/23 21:41 Methylprednisolone Sod Succ 125 Mg/2 Ml Vial IVPUSH 11/01/23 21:17 125 mg ONCE ONE Administration Medical Decision Making Medical Decision Making [facility] Narrative: Patient is smoker with asthma likely has COPD comes here with increased shortness of breath and cough chest x-ray negative for pneumonia will prescribe Ceftin prednisone advised to follow with pulmonology Differential Diagnosis Differential Diagnoses: The differential diagnosis associated with the presentation includes Pneumonia /COPD/bronchitis/asthma Lab Data [facility] Lab Attestation statement: I reviewed the patient's lab results. 11/01/23 20:33 11/01/23 20:33 Labs: Lab Results 11/01/23 Range/Units 20:33 WBC 9.0 (4.8-10.8) X10*3/uL RBC 4.20 (4.20-5.50) X10*6/uL Hgb 14.2 (12.0-16.0) g/dl Hct 42.3 (37.0-47.0) % MCV 100.7 H (80.0-98.0) fL MCH 33.8 H (27.0-33.0) pg MCHC 33.6 (31.0-35.0) g/dl RDW 12.6 (11.0-16.0) % Plt Count 230 (160-400) X10*3/uL MPV 9.6 (9.4-12.3) fL Immature Gran % (Auto) 0.2 (0.0-0.4) % Neut % (Auto) 68.6 (45-73) % Lymph % (Auto) 23.5 (20-40) % Hunt % (Auto) 6.5 (2-11) % Eos % (Auto) 0.8 (0-4) % Baso % (Auto) 0.4 (0-2) % Lymph # (Auto) 2.1 (1.2-4.9) X10*3/uL Hunt # (Auto) 0.6 (0.1-1.2) X10*3/uL Eos # (Auto) 0.1 (0.0-0.4) X10*3/uL Baso # (Auto) 0.0 (0.0-0.2) X10*3/uL Abs Immat Gran (auto) 0.02 (0.00-0.03) X10*3/uL Absolute Neuts (auto) 6.2 (2.0-8.3) x10*3/uL Absolute Nucleated RBC 0.000 (0.0-0.012) X10*3/uL Nucleated RBC % (auto) 0.0 (0.0-0.2) /100WBC PT 11.2 (11.1-13.3) SEC INR 0.9 (0.9-1.1) APTT 32.3 (26.0-36.8) SEC Sodium 145 (135-145) mmol/L Potassium 3.9 (3.3-5.1) mmol/L Chloride 108 (96-108) mmol/L Carbon Dioxide 30 H (22-29) mmol/L Anion Gap 11 L (12-20) BUN 11 (9-16) mg/dL Creatinine 0.72 (0.5-1.4) mg/dL Estim Creat Clear Calc 66.0 Estimated GFR > 60 Random Glucose 109 (60-115) mg/dL Calcium 9.1 (8.4-10.2) mg/dL Total Bilirubin 0.1 (0.0-1.0) mg/dL Direct Bilirubin < 0.2 (0.0-0.5) mg/dL AST 23 (5-31) U/L ALT 13 (0-31) U/L Alkaline Phosphatase 52 (39-117) U/L Troponin I High Sens < 2.7 (<3.5-17.0) ng/L Total Protein 6.9 (6.5-8.0) g/dL Albumin 4.2 (3.5-5.0) g/dL Influenza Type A (PCR) NEGATIVE (Negative) Influenza Type B (PCR) NEGATIVE (Negative) RSV RNA Qual (PCR) NEGATIVE (Negative) SARS-CoV-2 RNA (RT-PCR) NEGATIVE (Negative) Independent Interpretation I performed an independent interpretation of an: Plain X-Ray Radiology Impression Discussion of test interpretation with radiology: I have reviewed the radiologist's reading. Discharge Plan Discharge Clinical Impression: Chronic bronchitis Patient Disposition: Home, Self-Care Instructions: COPD (Chronic Obstructive Pulmonary Disease) (ED), Chronic Bronchitis (ED) Additional Instructions: Stop smoking Continue nebulizer treatment as advised Prednisone and cough drops as prescribed Follow with lung specialist Prescriptions: New albuterol sulfate 2.5 mg /3 mL (0.083 %) solution for nebulization 2.5 mg inhalation Q4-6H PRN (Reason: shortness of breath or wheezing) Qty: 90 0RF prednisone 20 mg tablet 40 mg PO DAILY Qty: 10 0RF cefuroxime axetil 500 mg tablet 500 mg PO BID 7 Days Qty: 14 0RF No Action tamoxifen 20 mg Tablet 20 mg PO DAILY Qty: 30 30RF Referrals: Martin Perez MD [Physician] - 2 weeks Interventions: ED Discharge Assessment Last Done: 11/01/23 22:40 Discharge Date/Time: 11/01/23 22:45 Print Language: Beninese
[2023-11-01 20:23] VITALS: BP 142/88; PULSE 96; RESP 18; TEMP 36.4; O2SAT 92
--- NOTE | 2023-11-01 20:26 | PC.NURSE ---
Pt ca&ox4, no signs of distress. Pt denies pain at this time, reports sob, cough, and malaise x2 months. Pt reports diagnosed with pneumonia about 2 months ago but has not gotten better Pt taking tamoxifen citrate and was told to come to ED for DVT rule out. Pt changed into hospital attire. EKG completed. Pt placed on bedside monitor. Plan of care ongoing.
[2023-11-01 20:37] LABS: MANUAL DIFF FLAG NO
[2023-11-01 20:38] LABS: Basophils Percent Auto 0.4 % (0-2); Eosinophils Absolute Auto 0.1 X10*3/uL (0.0-0.4); Eosinophils Percent Auto 0.8 % (0-4); Hematocrit 42.3 % (37.0-47.0); Hemoglobin 14.2 g/dl (12.0-16.0); Imm Gran Abs Auto 0.02 X10*3/uL (0.00-0.03); Imm Gran Pct Auto 0.2 % (0.0-0.4); Lymphocytes Absolute Auto 2.1 X10*3/uL (1.2-4.9); Lymphocytes Percent Auto 23.5 % (20-40); Mean Corpuscular HGB Conc 33.6 g/dl (31.0-35.0); Mean Corpuscular Hemoglobin 33.8 pg (27.0-33.0); Mean Corpuscular Volume 100.7 fL (80.0-98.0); Mean Platelet Volume 9.6 fL (9.4-12.3); Monocytes Absolute Auto 0.6 X10*3/uL (0.1-1.2); Monocytes Percent Auto 6.5 % (2-11); Neutrophils Absolute Auto 6.2 x10*3/uL (2.0-8.3); Neutrophils Percent Auto 68.6 % (45-73); Platelet Count 230 X10*3/uL (160-400); Red Cell Distribution Width 12.6 % (11.0-16.0)
[2023-11-01 20:44] LABS: INTERNATIONAL NORM RATIO 0.9 (0.9-1.1); Prothrombin Time 11.2 SEC (11.1-13.3)
[2023-11-01 20:47] LABS: Partial Thromboplastin Time 32.3 SEC (26.0-36.8)
[2023-11-01 20:55] LABS: Alanine Aminotransferase 13 U/L (0-31); Albumin Level 4.2 g/dL (3.5-5.0); Alkaline Phosphatase 52 U/L (39-117); Anion Gap 11 (12-20); Aspartate Amino Transferase 23 U/L (5-31); Bilirubin Direct < 0.2 mg/dL (0.0-0.5); Bilirubin Total 0.1 mg/dL (0.0-1.0); Blood Urea Nitrogen 11 mg/dL (9-16); Calcium 9.1 mg/dL (8.4-10.2); Carbon Dioxide 30 mmol/L (22-29); Chloride 108 mmol/L (96-108); Estimated Glomerular Filt Rate > 60; Glucose Random 109 mg/dL (60-115); Potassium 3.9 mmol/L (3.3-5.1); Sodium 145 mmol/L (135-145); Total Protein 6.9 g/dL (6.5-8.0)
[2023-11-01 21:05] LABS: Troponin-I High Sensitivity < 2.7 ng/L (<3.5-17.0)
--- NOTE | 2023-11-01 21:10 | PC.NURSE ---
Provider with pt. Plan of care ongoing.
--- OUTSIDE RECORDS SUMMARY | 2023-11-01 21:19 | XMS_ITS | Continuity of Care Document ---
Author Organization [facility] Address [address] [place] [address]- Care Team Providers Care Computer Lab Aide Name Role Phone Brendan Lewis MD Primary Care Physician Encounter [facility] Date(s): 09/27/23 - 10/04/23 [facility] [address] [place] [address]- Encounter Diagnosis Acute URI(Discharge Diagnosis) - 09/27/23 Attending Physician: Almita Sears MD Referring Physician: Brendan Lewis MD Allergies, Adverse Reactions, Alerts Substance Reaction Severity [...] 2Result Comment: [06/22/2013] given w/o incident...AA Medications albuterol 0.042% inhalation solution 3 mL = 1.25 mg, Neb, 4 times a day, PRN as needed, # 25 each, 0 Refills, Maintenance, 09/27/23 17:46:00 EDT, Solution, [facility] #[id number], Partial fill upon patient request if the prescription is for a schedule II opioid drug., 163, cm, 09/26... Start Date: 09/27/23 Status: Ordered azithromycin 250 mg oral tablet 1 tablet = 250 mg, By Mouth, Daily, 2 tablets on first day, then one tablet daily for 4 days, # 6 tablet, 0 Refills, Acute 10/11/23 19:15:00 EDT, 09/27/23 17:41:00 EDT, Tablet, [facility] #[id number], Partial fill upon patient request if the pres... Start Date: 09/27/23 Stop Date: 10/11/23 Status: Ordered mirtazapine 7.5 mg oral tablet 1 tablet, By Mouth, Daily at bedtime, # 30 tablet, 5 Refills, Maintenance, 07/06/22 12:58:00 EST, [facility] #[id number], 163, cm, 11/17/20 18:40:00 EDT, Height Start [...] of - chronic ear infection Confirmed Active Invasive ductal carcinoma of left breast, stage 1 [id number] 1 Confirmed 01/24/23 Active Sacroiliac joint pain Confirmed Active 1s/p left breast lumpectomy by Dr. Jose Diagnosis Diagnosis Type Effective Dates Health Status Clini soni Service Informant Acute URI Discharge Diagnosis 09/27/23 Vital Signs Most recent to oldest [Reference Range]: 1 Height 163 cm (09/27/23 5:12 PM) Oxygen Saturation [94-100 %] 98 % (09/27/23 5:12 PM) Pulse Rate [55-90 bpm] 93 bpm *H* (09/27/23 5:12 PM) Blood Pressure [90-138/55-84 mm Hg] 131/ 91mm Hg (09/27/23 5:12 PM) Respiratory Rate [16-30 br/min] 18 br/mi n (09/27/23 5:12 PM) Temperature [96.8-100.4 DegF] 97.6 DegF (09/27/23 5:12 PM) Mode of Delivery (Oxygen) Room air (09/27/23 5:12 PM) Blood pressure sites Arm, left (09/27/23 5:12 PM) Temperature Route Temporal (09/27/23 5:12 PM) Social History Social History Type Response Smoking Status Current some day smo ker; Tobacco user in household: No; Type: Cigarettes; Previous treatment: Medications; Interested in cessation: Yes; Tobacco use times per day: 6; Number of years: 20; Total pack years: 110; Cessation attempts: 10; entered on: 06/22/13 Sex Note * Lisa Jeffries: PERFORM, SIGN, VERIFY Event Display: Patient Education/Instruction Authored Date: [id number] [facility] Clinical Summary Name VANIA ROCK Age 48 Years 1975 PCP Joshua RAMIREZ, Brendan PCP Visit Date 09/27/2023 16:40:00 Additional Instructions: Scheduled Appointments?? Future Appointments ?No Future Appointments Scheduled Follow-Up Instructions ?? Diagnosis Acute upper respiratory infection, unspecified Medications: Please continue your medications until treatment is completed or stopped by your provider. Discuss any questions related to medications with your provider. New Medications [facility] #[id number], [address] [place] [phone], [phone] Albuterol (albuterol 0.042% inhalation solution) 3 Milliliter Nebulized inhalation 4 times a day asneeded. Refills: 0. Next Dose: Azithromycin (azithromycin 250 mg oral tablet) 1 tab(s) Oral Daily. 2 tablets on first day, then one tablet daily for 4 days. Refills: 0. Next Dose: Medications to Continue with No Changes These medications were not printed or sent to your pharmacy Mirtazapine (mirtazapine 7.5 mg oral tablet) 1 tab(s) Oral Daily at Bedtime. Refills: 5. Next Dose: Allergy Info:?? gabapentin Medications Given This Visit Future Orders ?No future orders Future Orders ?No future orders Vital Signs Height 163 cm Weight BMI Blood Pressure 131 mm Hg/91 mm Hg Temperature 97.6 DegF Pulse Rate 93 bpm Respiratory Rate 18 br/min 02 Sat Mode of Delivery 98 %/Room air You can now view a summary of your hospital visit from the comfort of your home through a free online portal called [employer]. [facility] is a website that allows you to securely view your medical information including discharge summary, medications and follow-up visits. ??You can alsosend a secure electronic message to your doctor???s office to request appointments, renew medications or just ask a question. You can enroll at [email or web address] or register during your next office visit. Disclaimer:?? The information provided is of a general nature and is intended to be used in conjunction with the recommendations and advice of your health care practitioner. ??Every effort has been made to ensure that the information provided is accurate and complete at the time it is provided to you however, as your needs change, or, as new ??information becomes available, different or additional instructions may be required. If you have questions, please consult with your primary care provider or pharmacist, as appropriate. ??This information is not intended to serve as substitution for assessment and evaluation by a qualified health care provider. If you do not have a primary care provider, you may find a [facility] provider by calling [facility] at [phone]. [facility], in keeping with [facility] guidance, no longer requires face masks for staff, patientsor visitors in most situations. Similar to time spent indoors at other locations, there is the chance that you were exposed to respiratory viruses during your time with us (such as flu or COVID-19).? If you develop symptoms concerning for a viral respiratory infection, please seek testing (and treatment if indicated) from your medical provider or home test kit. For information about the plan of care including goals and instructions for your diagnosis, please see the patient education orders section of this document. Patient Education Materials?? The content of this educational material or handout may have been modified, supplemented, or adapted from its original content and format to support your individualized medical care. Patient Care team information Care Team Personnel Name: Brendan Lewis MD Position: [facility] Physician - Primary Care Member Role: PCP Address: Address: [address] [place] [address] Adult & Pediatric [place], [place] [address] Name: May MITCHELL, Jacquelyn Read Position: [facility] AMB Nurse Member Role: Primary Care Nurse Care Team Related Persons Name: MICHELINE ROCK Address: [address] [address]
--- OUTSIDE RECORDS SUMMARY | 2023-11-01 21:19 | XMS_ITS | Continuity of Care Document ---
Author Organization [facility] Address [address] [place] [address]- Care Team Providers Care Police Liaison Name Role Phone Brendan Lewis MD Primary Care Physician Encounter [facility] Date(s): 09/27/23 - 10/27/23 [facility] [address] [place] [address]- Attending Physician: Andrés Fletcher Admitting Physician: Andrés [...] 0 Refills, Maintenance, 09/27/23 17:46:00 EDT, Solution, [facility] #[id number], Partial fill upon patient request if the prescription is for a schedule II opioid drug., 163, cm, 09/26... Start Date: 09/27/23 Status: Ordered mirtazapine 7.5 mg oral tablet 1 tablet, By Mouth, Daily at bedtime, # 30 tablet, 5 Refills, Maintenance, 07/06/22 12:58:00 EST, [facility] #[id number], 163, cm, 11/17/20 18:40:00 EDT, Height Start [...] ductal carcinoma of left breast, stage 1 [id number] 1 Confirmed 01/24/23 Active Sacroiliac joint pain Confirmed Active 1s/p left breast lumpectomy by Dr. Jose Social History Social History Type Response Smoking Status Current some day smo ker; Tobacco user in household: No; Type: Cigarettes; Previous treatment: Medications; Interested in cessation: Yes; Tobacco use times per day: 6; Number of years: 20; Total pack years: 110; Cessation attempts: 10; entered on: 06/22/13 Sex Patient Care team information Care Team Personnel Name: Brendan Lewis MD Position: [facility] Physician - Primary Care Member Role: PCP Address: Address: [address] [place] [address] Adult [place] [address]- Name: Jacquelyn Olvera RN Position: [facility] AMB Nurse Member Role: Primary Care Nurse Care Team Related Persons Name: MICHELINE ROCK Address: [address] [address]
[2023-11-01 21:26] LABS: Influenza A PCR NEGATIVE (Negative); Influenza B PCR NEGATIVE (Negative); Resp Syncy Virus RNA Qual PCR NEGATIVE (Negative); SARS COV2 PCR INHOUSE NEGATIVE (Negative)
[2023-11-01] MEDS: Benzonatate 100 MG CAPSULE 200 MG PO (21:41)
[2023-11-01] MEDS: methylPREDNISolone Sod Succ 125 MG/2 ML VIAL IVPUSH (21:41)
--- NOTE | 2023-11-01 21:44 | PC.NURSE ---
Pt medicated per sep. Pt requested and light dimmed. Pt 02 sat @ 92-94% room air. Plan of care ongoing.
[2023-11-01 22:14] VITALS: BP 126/90; PULSE 96; RESP 17; O2SAT 93
[2023-11-01] MEDS: Albuterol/Iprat 2.5/0.5MG 3 ML AMPUL.NEB INHALE (22:17)
[2023-11-01 22:18] VITALS: PULSE 89; RESP 14; O2SAT 95
[2023-11-01] MEDS: cefuroxime axetiL 500 MG TABLET PO (22:37)
[2023-11-01 22:40] VITALS: BP 126/90; PULSE 89; RESP 12; TEMP 36.4; O2SAT 94
== END 2023-11-01 22:45 | disposition home or self-care (01) ==
PROVIDERS: Physician Assistant Medical; Emergency Provider Internal Medicine; PCP Internal Medicine
DX: J42 Unspecified chronic bronchitis (principal); R06.02 Shortness of breath; F17.210 Nicotine dependence, cigarettes, uncomplicated; Z11.52 Encounter for screening for COVID-19; Z20.828 Contact with and (suspected) exposure to other viral communicable diseases; C50.912 Malignant neoplasm of unspecified site of left female breast
CPT/HCPCS: 0241U; 36415; 71045; 80048; 80076; 84484; 85025; 85610; 85730; 93005; 94640; 96374; 99284; 99285; J2919

== ENCOUNTER → 2023-11-01 20:21 | Outpatient (BNV) | payer BC, SELFPAY | PROVIDERS: Emergency Provider Internal Medicine; PCP Internal Medicine; Visit Provider Internal Medicine Cardiovascular Disease | DX: R94.31 Abnormal electrocardiogram [ECG] [EKG] (principal) | CPT/HCPCS: 93010 ==

== ENCOUNTER 2024-02-22 09:08 | Outpatient (AMB) | payer BC, SELFPAY ==
--- NOTE | 2024-02-22 09:14 | A.OFFVIS_ITS ---
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 Doing well with no concerns. Recently started Tamoxifen. She tries to eat healthy and stays active with exercise. Menstrual cycles have spaced intermittently, no cycle concerns Currently not is sexually active. She denies vaginal itching and irritation. STI screening offered; she declined. Last pap smear 2021, ascus positive HPV, colpo negative, Pap in 2022. [facility] Medical History 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 Hx of abnormal cervical Pap smear Surgical History History of lumpectomy (03/21/23) History of lumpectomy of left breast (01/24/23) Hx of section Family History Mother History of breast cancer, Onset Age: 64 Paternal Aunt Ovarian cancer Social History Household Members: Spouse and Children Housing: House Alcohol intake: current Alcohol intake frequency: holidays/special occasions only Patient Tobacco Use Status: Current everyday Tobacco user Tobacco use type: Cigarette Substance Use Type: Former Substance User service: No Current occupational status: unemployed Sexual orientation: Straight/Heterosexual Gender identity: Female Female Reproductive History Menstrual Age of Menarche: 11 Duration of menses: 3-5 days Date of last menstrual period: 02/08/24 Date of last pap smear: 12/30/22 (neg pap and hpv) History of abnormal pap smear: Yes (09/28 ascus 10/30 ascus +hpv 11/29 colpo) Date of Mammogram: 01/03/23 (Birad 4) History of abnormal mammogram: Yes (invasive ductal carcinoma) Review of Systems Const All systems reviewed & are unremarkable except as noted in HPI and below Reports as per HPI Eyes Reports no additional complaints ENT Reports no additional complaints Card Reports no additional complaints Resp Reports no additional complaints GI Reports as per HPI and Reports no additional complaints Reports as per HPI Musc Reports no additional complaints Skin/Breast Reports as per HPI Neuro Reports no additional complaints Psych Reports no additional complaints Endo Reports no additional complaints Bienvenido/Lymph Reports no additional complaints Aller/Immun Reports no additional complaints Physical Exam Vital Signs: Last Vital Signs BP 104/64 02/22/24 09:15 BMI result Body Mass Index 16.6 Const General: cooperative, healthy appearing, no acute distress, well developed and alert Orientation/consciousness: patient oriented x3 HEENT Head: Yes normal to inspection Eyes General: appearance normal, both eyes and all related structures Neck Neck: Yes normal visual inspection Thyroid: Thyroid normal Chest Chest palpation & inspection: normal inspection of the chest and other (no puckering, dimpling, peau de orange, retraction, discharge, masses) Breast/axilla inspection: normal inspection of the breasts and Other (Surgical scar) Breast/axilla palpation: normal palpation of the breasts Resp Effort & Inspection: normal respiratory effort GI Inspection: Yes normal to inspection Palpation (GI): Soft to palpation Rectal Exam - Female: deferred General: Yes bladder normal to palpation External Female Exam: normal external appearance and normal appearance of the urethra Speculum Exam - Vagina: normal appearance of the vagina, normal palpation and no rmal vaginal discharge Speculum Exam - Cervix: normal appearance of the cervix and normal palpation Bimanual exam- vagina & uterus: normal bimanual exam, normal palpation, uterine size normal, bladder normal to palpation, normal palpation and non-tender Bimanual Exam- Adnexa, other: no masses Skin General skin exam: no rashes or lesions noted Rashes: no rashes Neuro General: patient oriented x3 Cognition (Neuro): normal cognition Extrem General: Yes normal to inspection Psych Attitude: cooperative Thought process: Normal thought process present Assessment & Plan Assessment & Plan (1) Encounter for well woman exam with routine gynecological exam: Code(s): Z01.419 - Encounter for gynecological examination (general) (routine) without abnormal findings Category: Medical Plan: Discussed: Current recommendations for pap smears per ASCCP guidelines. Breast awareness and periodic breast exams. Maintain a healthy lifestyle including a well balanced diet and routine exercise. Use condoms for STI and prevention. Mammogram yearly-follow up with Oncology. Colonoscopy >45, or at risk sooner. Patient verbalizes understanding and agrees to the plan of care. She was given opportunity to ask questions and all questions were answered to the best of my a bility. 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 This note is constructed using voice recognition software. While every effort has been made to ensure accuracy, shredded filler cutter operator errors may have been included. Orders: Orders PAP + HPV E6/E7 rfx 18/45 Today Z01.419 - Encounter for gynecological examination (general) (routine) without abnormal findings Coding Level of Care Code Est Pt Prev Care 40-64y(89340) Diagnoses Encounter for well woman exam with routine gynecological exam Z01.419
[2024-02-22 09:15] VITALS: BP 104/64; BMI 16.6
== END 2024-02-22 10:23 | disposition home or self-care (01) ==
PROVIDERS: PCP Internal Medicine; Visit Provider Advanced Practice Midwife
DX: Z01.419 Encounter for gynecological examination (general) (routine) without abnormal findings (principal)
CPT/HCPCS: 99396

== ENCOUNTER → 2024-02-22 09:08 | Outpatient (BNVA) | payer BC, SELFPAY | PROVIDERS: PCP Internal Medicine; Visit Provider Advanced Practice Midwife ==

== ENCOUNTER 2024-02-22 11:54 | Outpatient (REF) | payer BC, SELFPAY ==
[2024-02-27 12:27] LABS: HPV mRNA E6/E7 Not Detected (Not Detected)
== END 2024-02-22 11:55 | disposition home or self-care (01) ==
LOC: HO.LNP 11:54
PROVIDERS: Visit Provider Advanced Practice Midwife
DX: Z01.419 Encounter for gynecological examination (general) (routine) without abnormal findings (principal)
CPT/HCPCS: 87624; 88175

== ENCOUNTER 2024-05-20 09:18 | Emergency (ER) | payer BC, SELFPAY ==
[2024-05-20] VITALS (7 sets, daily range): BP systolic 113–157; BP diastolic 70–98; PULSE 80–97; RESP 16–20; TEMP 36.9–37.1; O2SAT 92–95; BMI 16.3
--- NOTE | 2024-05-20 | ECG_ITS ---
Test Reason : SOB Blood Pressure : / mmHG Vent. Rate : 087 BPM Atrial Rate : 087 BPM P-R Int : 124 ms QRS Dur : 064 ms QT Int : 350 ms P-R-T Axes : 076 013 -10 degrees QTc Int : 421 ms Normal sinus rhythm Nonspecific T wave changes Abnormal ECG When compared with ECG of 01-NOV-2023 20:24, No significant change was found Referred By: Generic ED Physician Electronically Signed By:Sancho Ribera
--- NOTE | ~2024-05-20 | XR_ITS ---
EXAMINATION: XR CHEST 2 VIEWS CLINICAL INFORMATION: couogh, sob COMPARISON: No prior chest x-ray available in our system for comparison at the time of this dictation. TECHNIQUE: XR CHEST 2 VIEWS, 2 Views Lungs and Bailee: Both lungs are clear. Pleura: Normal. Costophrenic angles are sharp. No pneumothorax. Heart: The heart is normal in size. Mediastinum: The mediastinum is within normal limits.. Bones: Skeletal structures included are normal for patient's age. XR/XR chest 2V IMPRESSION: No radiographic evidence of acute cardiopulmonary disease. Electronically signed by: Dallas Gonzalez MD 05/20/2024 10:43 AM JIM
--- NOTE | 2024-05-20 09:55 | ED.SOB ---
HPI - SOB/Dyspnea General Chief Complaint: Dyspnea Stated Complaint: sob-O2 at 82 since last night Time Seen by Provider: 05/20/24 10:24 Source: patient Mode of arrival: ambulatory Limitations: no limitations History of Present Illness ED Provider: DR. Crocker HPI Narrative: a 48-year-old female presented today with symptoms of cough with production of clear sputum, left ear pain, shortness of breath, patient is actively smoker history of pneumonia and upper respiratory infection patient is prone to pneumonia, patient was seen at an urgent care last week started on Augmentin for left ear infection. Patient still does not feel better and do not feel improvement. Related Data Previous Rx's ?Medication ?Instructions ?Recorded tamoxifen 20 mg tablet 20 mg PO DAILY #30 tabs 07/18/23 albuterol sulfate 2.5 mg/3 mL 2.5 mg (3 mL) inhalation Q4-6H PRN 11/01/23 (0.083 %) solution for nebulization shortness of breath or wheezing #90 mL albuterol sulfate 2.5 mg/3 mL 2.5 mg (3 mL) inhalation QID PRN 05/20/24 (0.083 %) solution for nebulization shortness of breath or wheezing #75 mL albuterol sulfate 90 mcg/actuation 1 inh inhalation Q4-6H PRN 05/20/24 breath activated powder inhaler shortness of breath or wheezing #1 ea azithromycin 250 mg tablet See Rx Instructions PO .COMPLEX #6 05/20/24 (Zithromax) tabs guaifenesin 200 mg/5 mL oral liquid 200 mg (5 mL) PO Q4H PRN cough 05/20/24 #118 mL prednisone 20 mg tablet 20 mg PO BID #10 tabs 05/20/24 Allergies Allergy/AdvReac Type Severity Reaction Status Date / Time No Known Allergies Allergy Verified 05/20/24 09:24 [No Known Allergies*] Review of Systems Review of Systems: All other systems are reviewed and are negative Constitutional: Reports as per HPI and Reports no additional constitutional complaints Eyes: Reports as per HPI and Reports no additional eye complaints Reports system reviewed and no additional complaints, except as documented Cardiovascular: Reports as per HPI and Reports no additional cardiovascular complaints Respiratory: Reports as per HPI and Reports no additional respiratory complaints Gastrointestinal: Reports as per HPI and Reports no additional gastrointestinal complaints Genitourinary: Reports no additional female genitourinary complaints Musculoskeletal: Reports no additional musculoskeletal complaints Skin/Breast: Reports system reviewed and no additional complaints, except as docu Psychiatric: Reports no additional psychiatric complaints Endocrine: Reports no additional endocrine complaints Hematologic/Lymphatic: Reports no additional hematologic/lymphatic complaints Allergic/Immunologic: Reports no additional allergic/immunologic complaints Reports system reviewed and no additional complaints, except as documented and Reports Abnormal speech present PMFSH Past Medical History Medical History 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 Hx of abnormal cervical Pap smear Surgical History History of lumpectomy (03/21/23) History of lumpectomy of left breast (01/24/23) Hx of section Family History Family History Mother History of breast cancer, Onset Age: 64 Paternal Aunt Ovarian cancer Social History Social History Household Members: Spouse and Children Housing: House Alcohol intake: current Alcohol intake frequency: holidays/special occasions only Patient Tobacco Use Status: Current everyday Tobacco user Tobacco use type: Cigarette Smoked in Last 30 Days: No Use of substances other than those prescribed or required for medical reasons: No Substance Use Type: Former Substance User Advance Directives: Yes Advance Directives Information Provided: Yes Advance Directives on File: No Patient : No service: No Current occupational status: unemployed Sexual orientation: Straight/Heterosexual Gender identity: Female Physical Exam Vital Signs: Vital Signs: Last Vital Signs Temp 98.6 F 05/20/24 10:13 Pulse 89 05/20/24 10:54 Resp 17 05/20/24 10:54 BP 145/88 H 05/20/24 10:28 Pulse Ox 94 05/20/24 10:13 O2 Del Method Room Air 05/20/24 10:13 BMI result Body Mass Index 16.3 Vital signs have been reviewed and appear to be correct. Blood pressure elevated. Heart rate normal. Respiratory rate normal. Temperature normal. Oxygen saturation normal. Appearance: Alert. Oriented X3. No acute distress. Head: Normal external exam. Normocephalic. Atraumatic. No Mendes signs noted. No raccoon eyes noted Eyes: PERRLA. EOMI. Conjunctiva and sclera normal. Eyelids normal. ENT: Left TM erythema,Pharynx normal. Uvula midline. Moist mucous membranes. No trismus noted. No drooling noted. No muffled voice noted. Neck: Normal inspection. Neck supple. FROM. No adenopathy. Thyroid Normal. No meningeal signs. No neck mass noted. CVS: Normal heart rate and rhythm. Heart sound normal. No murmurs noted. Pulses normal throughout. Respiratory: No respiratory distress. Painless inspiration. Diminished breathing sounds bilaterally, prolonged expiration, with expiratory wheezing. No accessory muscle usage noted or decreased air movement noted. Abdomen: Soft and nontender. Bowel sounds normal in all 4 quadrants. No distention noted. No organomegaly noted. No visible injury noted. Back: No CVA tenderness. Full range of motion noted. Skin: Skin warm and dry. Normal skin color. Normal skin turgor. No rashes/lesions/lacerations noted. Extremities: No lower extremity edema. Extremities exhibit normal range of motion. Extremities nontender. Neuro: Oriented X 3. Cranial nerve exam: II-XII are grossly intact No motor deficit. No sensory deficit. Reflexes normal. Course Course Course Narrative: This is a rapid medical exam. Deferred additional HPI, ROS, PE to primary provider. 48 yo female who is a smoker has been sick with ear pain, productive cough and shortness of breath since Tuesday. Started Augmentin on Tuesday from . Still having left ear pain, dizziness, cough and SOB. Will obtain CXR, viral testing. EMILY Patel APRN Reevaluation(s) Reevaluation #1: 48-year-old female active smoker with history of easily prone to pneumonia an upper respiratory infection, patient currently is receiving Augmentin for left ear infection without improvement of her symptoms, chest x-ray is showing no pneumonia, feels better after received coughing medicine, bronchodilator, and azithromycin. Will discharge the patient on albuterol, prednisone, a Z-Mitchell. and instruction to quit smoking. Time: 12:09 Reevaluation #2: patient noticed to have a no O2 sat on air 88% to 90% I discussed with the patient at lengthy the importance of being admitted to the hospital for supplemental O2 and monitor oxygenation with IV medication, patient declined hospitalization because she has a boil to take [facility] patient stated that she has O2 monitor home and she will monitor herself and will follow-up with her PCP early this morning. Patient fully understood the risk low O2 and still wanted to be discharged. Time: 12:34 Medications Administered Discontinued Medications Generic Name Dose Route Start Last Admin Trade Name Inga PRN Reason Stop Dose Admin Albuterol Sulfate 2.5 mg/ 5 mg 05/20/24 10:48 05/20/24 10:53 Albuterol Sulfate 2.5 mg INHALE 05/20/24 10:49 5 mg ONCE ONE Administration Azithromycin 500 mg 05/20/24 10:33 05/20/24 11:20 Azithromycin 500 Mg Tablet PO 05/20/24 10:34 500 mg ONCE ONE Administration Prednisone 40 mg 05/20/24 10:33 05/20/24 11:20 Prednisone 20 Mg Tablet PO 05/20/24 10:34 40 mg ONCE ONE Administration Medical Decision Making Differential Diagnosis Differential Diagnoses: The differential diagnosis associated with the presentation includes ( Pneumonia, pneumothorax, pleural effusion, bronchopneumonia, bronchitis, viral upper respiratory infection, left otitis media, electrolyte derangement, severe anemia.) Admission/Observation Consideration of admission/observation: Escalation of care including admission/observation considered Lab Data MDM Lab Attestation statement: I reviewed the patient's lab results. 05/20/24 11:15 05/20/24 11:15 Labs: Lab Results 05/20/24 05/20/24 Range/Units 09:34 11:15 WBC 9.0 (4.8-10.8) X10*3/uL RBC 4.69 (4.20-5.50) X10*6/uL Hgb 15.4 (12.0-16.0) g/dl Hct 43.9 (37.0-47.0) % MCV 93.6 (80.0-98.0) fL MCH 32.8 (27.0-33.0) pg MCHC 35.1 H (31.0-35.0) g/dl RDW 12.1 (11.0-16.0) % Plt Count 299 (160-400) X10*3/uL MPV 9.1 L (9.4-12.3) fL Immature Gran % (Auto) 0.4 (0.0-0.4) % Neut % (Auto) 73.6 H (45-73) % Lymph % (Auto) 18.2 L (20-40) % [place] % (Auto) 7.5 (2-11) % Eos % (Auto) 0.1 (0-4) % Baso % (Auto) 0.2 (0-2) % Lymph # (Auto) 1.6 (1.2-4.9) X10*3/uL [place] # (Auto) 0.7 (0.1-1.2) X10*3/uL Eos # (Auto) 0.0 (0.0-0.4) X10*3/uL Baso # (Auto) 0.0 (0.0-0.2) X10*3/uL Abs Immat Gran (auto) 0.04 H (0.00-0.03) X10*3/uL Absolute Neuts (auto) 6.6 (2.0-8.3) x10*3/uL Absolute Nucleated RBC 0.000 (0.0-0.012) X10*3/uL Nucleated RBC % (auto) 0.0 (0.0-0.2) /100WBC Sodium 142 (135-145) mmol/L Potassium 3.8 (3.3-5.1) mmol/L Chloride 107 (96-108) mmol/L Carbon Dioxide 22 (22-29) mmol/L Anion Gap 17 (12-20) BUN 5 L (9-16) mg/dL Creatinine 0.64 (0.5-1.4) mg/dL Estim Creat Clear Calc 79.4 Estimated GFR > 60 Random Glucose 93 (60-115) mg/dL Lactic Acid 1.4 (0.5-2.0) mmol/L Calcium 9.8 (8.4-10.2) mg/dL Influenza Type A (PCR) NEGATIVE (Negative) Influenza Type B (PCR) NEGATIVE (Negative) RSV RNA Qual (PCR) NEGATIVE (Negative) SARS-CoV-2 RNA (RT-PCR) NEGATIVE (Negative) Independent Interpretation I performed an independent interpretation of an: Plain X-Ray ( chest:No radiographic evidence of acute cardiopulmonary disease.) Radiology Impression Discussion of test interpretation with radiology: I have reviewed the radiologist's reading. Discharge Plan Discharge Clinical Impression: Bronchopneumonia Patient Disposition: Home, Self-Care Instructions: How to Stop Smoking (ED), Ear Infection (ED), Acute Bronchitis (ED) Prescriptions: New albuterol sulfate 2.5 mg /3 mL (0.083 %) solution for nebulization 2.5 mg inhalation QID PRN (Reason: shortness of breath or wheezing) Qty: 75 0RF albuterol sulfate 90 mcg/actuation aerosol powdr breath activated 1 inh inhalation Q4-6H PRN (Reason: shortness of breath or wheezing) Qty: 1 0RF prednisone 20 mg tablet 20 mg PO BID Qty: 10 0RF azithromycin [Zithromax] 250 mg tablet See Rx Instructions .ROUTE .COMPLEX Qty: 6 0RF Rx Instructions: For 250 mg dose pack: take 500 mg today (day 1), then 250 mg for 4 days (days 2-5) guaifenesin 200 mg/5 mL liquid 200 mg PO Q4H PRN (Reason: cough) Qty: 118 0RF No Action tamoxifen 20 mg Tablet 20 mg PO DAILY Qty: 30 30RF albuterol sulfate 2.5 mg /3 mL (0.083 %) solution for nebulization 2.5 mg inhalation Q4-6H PRN (Reason: shortness of breath or wheezing) Qty: 90 0RF Referrals: Brendan Lewis MD [Primary Care Provider] - Stand Alone Forms: Work/School Release Print Language: Prydeinig
[2024-05-20 10:42] LABS: Influenza A PCR NEGATIVE (Negative); Influenza B PCR NEGATIVE (Negative); Resp Syncy Virus RNA Qual PCR NEGATIVE (Negative); SARS COV2 PCR INHOUSE NEGATIVE (Negative)
[2024-05-20] MEDS: Albuterol Sulfate 2.5 MG, Albuterol Sulfate (0.083%) 2.5 MG 5 MG INHALE (10:53)
[2024-05-20] MEDS: predniSONE 20 MG TABLET 40 MG PO (11:20)
[2024-05-20] MEDS: Azithromycin 500 MG TABLET PO (11:20)
[2024-05-20 11:22] LABS: Basophils Percent Auto 0.2 % (0-2); Eosinophils Percent Auto 0.1 % (0-4); Hematocrit 43.9 % (37.0-47.0); Hemoglobin 15.4 g/dl (12.0-16.0); Imm Gran Abs Auto 0.04 X10*3/uL (0.00-0.03); Imm Gran Pct Auto 0.4 % (0.0-0.4); Lymphocytes Absolute Auto 1.6 X10*3/uL (1.2-4.9); Lymphocytes Percent Auto 18.2 % (20-40); MANUAL DIFF FLAG NO; Mean Corpuscular HGB Conc 35.1 g/dl (31.0-35.0); Mean Corpuscular Hemoglobin 32.8 pg (27.0-33.0); Mean Corpuscular Volume 93.6 fL (80.0-98.0); Mean Platelet Volume 9.1 fL (9.4-12.3); Monocytes Absolute Auto 0.7 X10*3/uL (0.1-1.2); Monocytes Percent Auto 7.5 % (2-11); Neutrophils Absolute Auto 6.6 x10*3/uL (2.0-8.3); Neutrophils Percent Auto 73.6 % (45-73); Platelet Count 299 X10*3/uL (160-400); Red Blood Count 4.69 X10*6/uL (4.20-5.50); Red Cell Distribution Width 12.1 % (11.0-16.0)
[2024-05-20 11:35] LABS: Anion Gap 17 (12-20); Blood Urea Nitrogen 5 mg/dL (9-16); Calcium 9.8 mg/dL (8.4-10.2); Carbon Dioxide 22 mmol/L (22-29); Chloride 107 mmol/L (96-108); Creatinine Clr Calc Pharmacy 79.4; Estimated Glomerular Filt Rate > 60; Glucose Random 93 mg/dL (60-115); Potassium 3.8 mmol/L (3.3-5.1); Sodium 142 mmol/L (135-145)
[2024-05-20 11:36] LABS: Lactic Acid 1.4 mmol/L (0.5-2.0)
== END 2024-05-20 12:59 | disposition home or self-care (01) ==
PROVIDERS: Emergency Provider Emergency Medicine; PCP Internal Medicine
DX: J18.0 Bronchopneumonia, unspecified organism (principal); R06.02 Shortness of breath; R05.9 Cough, unspecified; F17.210 Nicotine dependence, cigarettes, uncomplicated; Z03.818 Encounter for observation for suspected exposure to other biological agents ruled out; Z79.899 Other long term (current) drug therapy
CPT/HCPCS: 0241U; 36415; 71046; 80048; 83605; 85025; 87040; 93005; 94640; 99284; 99285

== ENCOUNTER → 2024-05-20 09:27 | Outpatient (BNV) | payer BC, SELFPAY | PROVIDERS: Emergency Provider Emergency Medicine; PCP Internal Medicine; Visit Provider Internal Medicine Cardiovascular Disease | DX: R94.31 Abnormal electrocardiogram [ECG] [EKG] (principal) | CPT/HCPCS: 93010 ==

== ENCOUNTER 2024-05-25 19:20 | Inpatient (IN) | payer BC, SELFPAY ==
--- NOTE | ~2024-05-25 | XR_ITS ---
EXAMINATION: XR CHEST CLINICAL INFORMATION: Shortness of breath, chest pain, pneumonia. COMPARISON: Chest radiograph 05/20/2024. TECHNIQUE: 2 views of the chest were obtained. FINDINGS: Unchanged increased lung volumes and mild diffuse interstitial thickening. Decreased focal airspace opacities projecting over the right middle lobe. No pleural effusion. No pneumothorax. Normal appearance of the cardiomediastinal silhouette. No acute osseous findings. XR/XR chest 2V IMPRESSION: 1. Stable interstitial prominence and pulmonary hyperexpansion which could indicate small airways disease and air trapping. 2. Decreased and now more streaky focal airspace opacities in the right middle lobe suggesting resolving infectious/inflammatory infiltrate and residual subsegmental atelectasis. Electronically signed by: Emma Najera MD 05/25/2024 09:33 PM EST
--- NOTE | 2024-05-25 19:21 | ECG_ITS ---
Test Reason : CP Blood Pressure : / mmHG Vent. Rate : 086 BPM Atrial Rate : 086 BPM P-R Int : 120 ms QRS Dur : 068 ms QT Int : 362 ms P-R-T Axes : 073 026 039 degrees QTc Int : 433 ms Normal sinus rhythm Normal ECG When compared with ECG of 20-MAY-2024 09:27, Nonspecific T wave abnormality has replaced inverted T waves in Inferior leads Referred By: Generic ED Physician Electronically Signed By:Sancho Ribera
--- NOTE | 2024-05-25 19:32 | ED_ITS ---
HPI - SOB/Dyspnea General Chief Complaint: Dyspnea Stated Complaint: Chest pain, difficulty breathing Time Seen by Provider: 05/25/24 22:28 Source: patient Mode of arrival: ambulatory Limitations: no limitations History of Present Illness ED Provider: Dr. Madalyn Paris HPI Narrative: Patient comes to the emergency room complaining cough, phlegm, congestion, subjective fever and chills. Patient states that 5 days ago she was seen here in the emergency room, diagnosed with pneumonia, admission was encouraged but patient declined. Patient states she went home but she is feeling worse now. Patient has been taking her antibiotics, inhalers and steroids. Patient states that at home her O2 dropped to 87% on room air. Patient is not O2 dependent. Patient denies chest pain, denies any lower extremity pain or swelling. Related Data Previous Rx's ?Medication ?Instructions ?Recorded tamoxifen 20 mg tablet 20 mg PO DAILY #30 tabs 07/18/23 albuterol sulfate 2.5 mg/3 mL 2.5 mg (3 mL) inhalation Q4-6H PRN 11/01/23 (0.083 %) solution for nebulization shortness of breath or wheezing #90 mL albuterol sulfate 2.5 mg/3 mL 2.5 mg (3 mL) inhalation QID PRN 05/20/24 (0.083 %) solution for nebulization shortness of breath or wheezing #75 mL albuterol sulfate 90 mcg/actuation 1 inh inhalation Q4-6H PRN 05/20/24 breath activated powder inhaler shortness of breath or wheezing #1 ea azithromycin 250 mg tablet See Rx Instructions PO .COMPLEX #6 05/20/24 (Zithromax) tabs guaifenesin 200 mg/5 mL oral liquid 200 mg (5 mL) PO Q4H PRN cough 05/20/24 #118 mL prednisone 20 mg tablet 20 mg PO BID #10 tabs 05/20/24 Allergies Allergy/AdvReac Type Severity Reaction Status Date / Time No Known Allergies Allergy Verified 05/25/24 19:35 [No Known Allergies*] Review of Systems 2 Review of Systems: Constitutional : No Weight loss, No Fever, complaining of Chills, No Night Sweats, No Fatigue, No Malaise ENT/Mouth : No Hearing loss, No Ear Pain, No Nasal Congestion, No Sinus Pain, No Hoarseness, No sore throat, No Rhinorrhea, No Swallowing Difficulty Eyes: No Eye Pain, No Swelling, No Redness, No Foreign Body, No Discharge, No Vision Changes Cardiovascular : No Chest Pain, No SOB, No Dyspnea on Exertion, No Orthopnea, No Edema, No Palpitations Respiratory : Complaining of productive cough, wheezing Gastrointestinal : No Nausea, No Vomiting, No Diarrhea, No Constipation, No abdominal Pain, No Hematochezia, No Melena Genitourinary : no irregular bleeding, No Dysuria, No Urinary Frequency, No Hematuria, No Urinary Incontinence, No Urgency, No Flank Pain, No Urinary Flow Changes, No Hesitancy Musculoskeletal : No joint pain, No Myalgias, No Joint Swelling Skin : No Skin Lesions, No rash Neuro : No Weakness, No Numbness, No Paresthesias, No Loss of Consciousness, No Dizziness, No Headache Psych : No Anxiety/Panic, No Depression, No SI/HI/AH/VH, No Social Issues, Heme/Lymph: No Bruising, No Bleeding,No Lymphadenopathy Endocrine : No Polyuria, No Polydipsia, No Temperature Intolerance PMFSH Past Medical History Medical History 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 Hx of abnormal cervical Pap smear Surgical History History of lumpectomy (03/21/23) History of lumpectomy of left breast (01/24/23) Hx of section Family History Family History Mother History of breast cancer, Onset Age: 64 Paternal Aunt Ovarian cancer Social History Social History Household Members: Spouse and Children Housing: House Alcohol intake: current Alcohol intake frequency: holidays/special occasions only Patient Tobacco Use Status: Current everyday Tobacco user Tobacco use type: Cigarette Smoked in Last 30 Days: Yes Use of substances other than those prescribed or required for medical reasons: No Substance Use Type: Former Substance User Advance Directives: No Advance Directives Information Provided: No service: No Current occupational status: unemployed Sexual orientation: Straight/Heterosexual Gender identity: Female Physical Exam 2 Vital Signs: Vital Signs: Last Vital Signs Temp 97.8 F 05/25/24 21:56 Pulse 87 05/25/24 21:56 Resp 18 05/25/24 21:56 BP 122/70 05/25/24 21:56 Pulse Ox 94 05/25/24 21:56 O2 Del Method Nasal Cannula 05/25/24 21:56 O2 Flow Rate 2 05/25/24 21:56 BMI result Body Mass Index 16.6 Const: Other: Appearance: Alert. Oriented X3. No acute distress. Eyes: Pupils equal, round and reactive to light. ENT: Pharynx normal. Neck: Normal inspection. Neck supple. No lymph nodes noted. No crepitus CVS: Normal heart rate and rhythm. Pulses normal. Normal S1 and S2 Respiratory: No respiratory distress. Speaking full sentences, mild bilateral wheezing, rales bilaterally, no crackles Abdomen: Soft and nontender. No rigidity. No distention. Skin: Skin warm and dry. Normal skin color. Normal skin turgor. Extremities: No lower extremity edema. No Lacerations. No Rash Neuro: Oriented X 3. No motor deficit. No sensory deficit. Moving all extremities. No slurred speech. CN 2 through 12 grossly intact Psych: calm, cooperative, normal affect Course Course Course Narrative: This is an RME performed by Jam Levine CNP: Additional HPI, ROS, PE not included below will be deferred to primary provider. Patient is a 48-year-old female who presents emergency department for evaluation. She reports O2 saturation has been around 86% at home, productive cough, SOB, chest pain, recently completed course of treatment is Augmentin (for an ear infection), azithromycin, and prednisone. She reports no improvement in symptoms. Continues to feel significantly fatigued. Reports that she had a chest x-ray that showed pneumonia. Reports that she was advised to come into the hospital to receive IV antibiotics as well as supplemental oxygen but declined at that time. Medications Administered Discontinued Medications Generic Name Dose Route Start Last Admin Trade Name Freq PRN Reason Stop Dose Admin Ceftriaxone Sodium 1 gm 05/25/24 19:52 05/25/24 20:47 Ceftriaxone Sodium 1 Gm Vial IVPUSH 05/25/24 19:53 1 gm ONCE ONE Administration Medical Decision Making Medical Decision Making MDM Narrative: My interpretation of labs, normal hematology, chemistry shows mild hyponatremia of 133, asymptomatic, LFTs normal. Serology negative for flu RSV and COVID. -Chest x-ray shows possible pneumonia in the right middle lobe -patient was given IV fluids, ceftriaxone, azithromycin and steroids. -at rest, patient's oxygen saturation is 89% on room air. However, when she walks it goes up to 91%. No chest pain, no tachycardia, patient did feel short of breath. Patient does not use oxygen at home. I asked the patient what her usual O2 saturation is at home when she is not sick, it is usually normal 95% and above. -I discussed with the patient that this is the 2nd time in a week that she comes to emergency room, highly recommend her to stay this time in the hospital. However, patient states that she would prefer to go home, does not want to stay in the hospital, if she gets worse she would return. I mentioned to the patient that we gave her the same instructions 5 days ago, she did get worse and now she is here again. However, patient adamant that she would like to go home -when patient takes her oxygen off and is lying still in bed, oxygen saturation in bed drops to 88%. After a prolonged conversation with the patient, patient agreeable to stay. -lactic acid and blood cultures pending. At this time, 23:05, sepsis not suspected -I discussed the patient with Dr. Reynaga from the Medicine team, patient being admitted Differential Diagnosis Differential Diagnoses: The differential diagnosis associated with the presentation includes (Pneumonia, chronic lung disease exacerbation) Consult Healthcare Provider Management of the patient was discussed with: Hospitalist Lab Data MDM Lab Attestation statement: I reviewed the patient's lab results. 05/25/24 19:50 05/25/24 19:50 Labs: Lab Results 05/25/24 Range/Units 19:50 WBC 10.5 (4.8-10.8) X10*3/uL RBC 4.18 L (4.20-5.50) X10*6/uL Hgb 13.6 (12.0-16.0) g/dl Hct 39.6 (37.0-47.0) % MCV 94.7 (80.0-98.0) fL MCH 32.5 (27.0-33.0) pg MCHC 34.3 (31.0-35.0) g/dl RDW 11.9 (11.0-16.0) % Plt Count 374 D (160-400) X10*3/uL MPV 9.0 L (9.4-12.3) fL Immature Gran % (Auto) 0.7 H (0.0-0.4) % Neut % (Auto) 55.0 (45-73) % Lymph % (Auto) 35.2 (20-40) % [place] % (Auto) 8.4 (2-11) % Eos % (Auto) 0.5 (0-4) % Baso % (Auto) 0.2 (0-2) % Lymph # (Auto) 3.7 (1.2-4.9) X10*3/uL [place] # (Auto) 0.9 (0.1-1.2) X10*3/uL Eos # (Auto) 0.1 (0.0-0.4) X10*3/uL Baso # (Auto) 0.0 (0.0-0.2) X10*3/uL Abs Immat Gran (auto) 0.07 H (0.00-0.03) X10*3/uL Absolute Neuts (auto) 5.8 (2.0-8.3) x10*3/uL Absolute Nucleated RBC 0.000 (0.0-0.012) X10*3/uL Nucleated RBC % (auto) 0.0 (0.0-0.2) /100WBC Sodium 133 L (135-145) mmol/L Potassium 3.5 (3.3-5.1) mmol/L Chloride 103 (96-108) mmol/L Carbon Dioxide 23 (22-29) mmol/L Anion Gap 11 L (12-20) BUN 10 (9-16) mg/dL Creatinine 0.70 (0.5-1.4) mg/dL Estim Creat Clear Calc 71.8 Estimated GFR > 60 Random Glucose 111 (60-115) mg/dL Calcium 8.5 D (8.4-10.2) mg/dL Total Bilirubin 0.2 (0.0-1.0) mg/dL AST 18 (5-31) U/L ALT 21 (0-31) U/L Alkaline Phosphatase 55 (39-117) U/L Total Protein 6.4 L (6.5-8.0) g/dL Albumin 3.8 (3.5-5.0) g/dL Influenza Type A (PCR) NEGATIVE (Negative) Influenza Type B (PCR) NEGATIVE (Negative) RSV RNA Qual (PCR) NEGATIVE (Negative) SARS-CoV-2 RNA (RT-PCR) NEGATIVE (Negative) Independent Interpretation I performed an independent interpretation of an: Plain X-Ray Radiology Impression Discussion of test interpretation with radiology: I have reviewed the radiologist's reading. Radiologist Impression: 1. Stable interstitial prominence and pulmonary hyperexpansion which could indicate small airways disease and air trapping. 2. Decreased and now more streaky focal airspace opacities in the right middle lobe suggesting resolving infectious/inflammatory infiltrate and residual subsegmental atelectasis. Critical Care Time Critical Care Time Critical Care Time: Yes Total Critical Care Time: 60 Attestation: I have personally provided critical care time. Time includes review of lab data, radiology results, discussion with consultants, and monitoring for potential decompensation. Intervention performed as documented. Discharge Plan Discharge Clinical Impression: Pneumonia Patient Disposition: Admitted As Inpatient Prescriptions: No Action tamoxifen 20 mg Tablet 20 mg PO DAILY Qty: 30 30RF albuterol sulfate 2.5 mg /3 mL (0.083 %) solution for nebulization 2.5 mg inhalation Q4-6H PRN (Reason: shortness of breath or wheezing) Qty: 90 0RF albuterol sulfate 2.5 mg /3 mL (0.083 %) solution for nebulization 2.5 mg inhalation QID PRN (Reason: shortness of breath or wheezing) Qty: 75 0RF albuterol sulfate 90 mcg/actuation aerosol powdr breath activated 1 inh inhalation Q4-6H PRN (Reason: shortness of breath or wheezing) Qty: 1 0RF prednisone 20 mg tablet 20 mg PO BID Qty: 10 0RF azithromycin [Zithromax] 250 mg tablet See Rx Instructions .ROUTE .COMPLEX Qty: 6 0RF Rx Instructions: For 250 mg dose pack: take 500 mg today (day 1), then 250 mg for 4 days (days 2-5) guaifenesin 200 mg/5 mL liquid 200 mg PO Q4H PRN (Reason: cough) Qty: 118 0RF Print Language: Kiswahili
[2024-05-25 19:33] VITALS: BP 120/51; PULSE 86; RESP 20; TEMP 36.4; O2SAT 91; BMI 16.6
[2024-05-25 19:54] LABS: MANUAL DIFF FLAG NO
[2024-05-25 20:09] LABS: Alanine Aminotransferase 21 U/L (0-31); Albumin Level 3.8 g/dL (3.5-5.0); Alkaline Phosphatase 55 U/L (39-117); Anion Gap 11 (12-20); Aspartate Amino Transferase 18 U/L (5-31); Basophils Percent Auto 0.2 % (0-2); Bilirubin Total 0.2 mg/dL (0.0-1.0); Blood Urea Nitrogen 10 mg/dL (9-16); Calcium 8.5 mg/dL (8.4-10.2); Carbon Dioxide 23 mmol/L (22-29); Chloride 103 mmol/L (96-108); Creatinine Clr Calc Pharmacy 71.8; Eosinophils Absolute Auto 0.1 X10*3/uL (0.0-0.4); Eosinophils Percent Auto 0.5 % (0-4); Estimated Glomerular Filt Rate > 60; Glucose Random 111 mg/dL (60-115); Hematocrit 39.6 % (37.0-47.0); Hemoglobin 13.6 g/dl (12.0-16.0); Imm Gran Abs Auto 0.07 X10*3/uL (0.00-0.03); Imm Gran Pct Auto 0.7 % (0.0-0.4); Lymphocytes Absolute Auto 3.7 X10*3/uL (1.2-4.9); Lymphocytes Percent Auto 35.2 % (20-40); Mean Corpuscular HGB Conc 34.3 g/dl (31.0-35.0); Mean Corpuscular Hemoglobin 32.5 pg (27.0-33.0); Mean Corpuscular Volume 94.7 fL (80.0-98.0); Monocytes Absolute Auto 0.9 X10*3/uL (0.1-1.2); Monocytes Percent Auto 8.4 % (2-11); Neutrophils Absolute Auto 5.8 x10*3/uL (2.0-8.3); Platelet Count 374 X10*3/uL (160-400); Potassium 3.5 mmol/L (3.3-5.1); Red Blood Count 4.18 X10*6/uL (4.20-5.50); Red Cell Distribution Width 11.9 % (11.0-16.0); Sodium 133 mmol/L (135-145); Total Protein 6.4 g/dL (6.5-8.0); White Blood Count 10.5 X10*3/uL (4.8-10.8)
[2024-05-25 20:31] LABS: Influenza A PCR NEGATIVE (Negative); Influenza B PCR NEGATIVE (Negative); Resp Syncy Virus RNA Qual PCR NEGATIVE (Negative); SARS COV2 PCR INHOUSE NEGATIVE (Negative)
[2024-05-25] MEDS: cefTRIAXone sodium 1 GM VIAL IVPUSH (20:47)
[2024-05-25 21:56] VITALS: BP 122/70; PULSE 87; RESP 18; TEMP 36.6; O2SAT 94
[2024-05-25 22:49] VITALS: O2SAT 91
[2024-05-25] MEDS: Azithromycin 500 MG in 0.9 % Sodium Chloride 250 ML 125 MG IV (22:55)
[2024-05-25] MEDS: 0.9 % Sodium Chloride 1,000 ML 999 ML IVCONT (23:00)
[2024-05-25] MEDS: methylPREDNISolone Sod Succ 125 MG/2 ML VIAL IVPUSH (23:06)
[2024-05-25 23:33] LABS: VBG Base Excess 0.5 mmol/L; VBG HCO3 26 mmol/L (22-26); VBG pCO2 46 mmHg; VBG pH 7.36 (7.32-7.43); VBG pO2 34 mmHg
[2024-05-25 23:35] LABS: Venous Blood Gas Refer to POC result
--- NOTE | 2024-05-25 23:42 | PM.IMHP ---
History of Present Illness Date of Service: 05/25/24 Attending physician on admission: Risa Shaikh Chief Complaint: Shortness of breaths Sherly Ocampo is a 48 years old woman with past medical history significant for left breath ductal carcinoma with DCIS s/p left wide excision of the left breast + left axillary sentinel node biopsy presents to the emergency department complaining of worsening shortness on breath over the last several days associated with productive cough, fullness to her ears and chest tightness. Did not report fevers or chills. Did not report any headache, palpitations or dizziness. Denied any acute GI symptoms. She is a tobacco smoker, smoked about 5 cigarettes per day. Denied alcohol abuse or illicit drug use. She was recently seen in the emergency department for same symptoms but refused hospitalization so she was discharged home to take a course of prednisone, azithromycin and albuterol which she completed. In the ED, she was found to have stable vital signs. Oxygen saturation is 95 on room air (while I was evaluating her). Blood workup showed no leukocytosis or lactic acidosis. There are no significant electrolyte imbalances except for mild hyponatremia 133. LFTs and renal function are normal. Viral testing for COVID-19, RSV and influenza is negative. CXR today showed stable interstitial prominence and pulmonary hyperexpansion which could indicate small airway dizziness and air trapping; and right middle lobe changes possible residual infectious/inflammatory process. ECG showed normal sinus rhythm without ischemic changes. ED Tx: Azithromycin 500 mg IV, albuterol 7.5 mg, ceftriaxone 1 g IV, NS 2 L bolus and Solu-Medrol 125 mg IV Review of Systems Review of Systems: All 12 systems were reviewed and normal except as noted in HPI. [facility], [facility] Medical History 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 Hx of abnormal cervical Pap smear Family History Mother History of breast cancer, Onset Age: 64 Paternal Aunt Ovarian cancer Surgical History History of lumpectomy (03/21/23) History of lumpectomy of left breast (01/24/23) Hx of section Social History Household Members: Spouse and Children Housing: House Alcohol intake: current Alcohol intake frequency: holidays/special occasions only Patient Tobacco Use Status: Current everyday Tobacco user Tobacco use type: Cigarette Substance Use Type: Former Substance User service: No Current occupational status: unemployed Sexual orientation: Straight/Heterosexual Gender identity: Female Meds Allergies Allergy/AdvReac Type Severity Reaction Status Date / Time No Known Allergies Allergy Verified 05/25/24 19:35 [No Known Allergies*] Active Medications: Current Medications Acetaminophen (Acetaminophen 325 Mg Tablet) 975 mg PO Q6H PRN PRN Reason: Pain, Mild (Pain Scale 1-3), fever or headache Albuterol Sulfate (Albuterol Sulfate (0.083%) 2.5 Mg/3 Ml Vial.Neb) 2.5 mg INHALE Q2H PRN PRN Reason: Shortness of Breath/Wheezing Albuterol/Ipratropium (Albuterol/Iprat 2.5/0.5mg 3 Ml Ampul.Neb) 3 ml INHALE RQ4H WHILE AWAKE [facility] Calcium Carbonate (Calcium Carbonate 750 Mg Tab.Chew) 750 mg PO Q4H PRN PRN Reason: Heartburn Enoxaparin Sodium (Enoxaparin Sodium 40 Mg/0.4 Ml Syringe) 40 mg SUBCUT Q24H [facility] Guaifenesin/Dextromethorphan (Guaifenesin Dm 200/20/10 Ml 10 Ml Syrup) 10 ml PO Q8H PRN PRN Reason: cough Azithromycin 500 mg/ Sodium (Chloride) 250 mls @ 125 mls/hr IV ONCE ONE Stop: 05/26/24 00:40 Last Admin: 05/25/24 22:55 Dose: 125 mls/hr Piperacillin Sod/Tazobactam (Sod 3.375 gm/ Sodium Chloride) 50 mls @ 100 mls/hr IV Q6H [facility] Magnesium Hydroxide (Milk Of Magnesia 30 Ml Oral.Susp) 30 ml PO DAILY PRN PRN Reason: Constipation Melatonin (Melatonin 3 Mg Tablet) 6 mg PO BEDTIME PRN PRN Reason: Insomnia Methylprednisolone Sodium Succinate (Methylprednisolone Sod Succ 40 Mg/Ml Vial) 40 mg IVPUSH Q12H [facility] Nicotine Polacrilex (Nicotine Polacrilex Lozenge 2 Mg Lozenge) 2 mg BUCCAL Q2H PRN PRN Reason: Nicotine Cravings Sodium Chloride (0.9 % Sodium Chloride Flush 3 Ml Syringe) 3 ml IVFLUSH QSHIFT [facility] Physical Exam Vital Signs and Narrative: Vital Signs: Last Vital Signs Temp 97.8 F 05/25/24 21:56 Pulse 87 05/25/24 21:56 Resp 18 05/25/24 21:56 BP 122/70 05/25/24 21:56 Pulse Ox 91 L 05/25/24 22:49 O2 Del Method Nasal Cannula 05/25/24 21:56 O2 Flow Rate 2 05/25/24 21:56 BMI result Body Mass Index 16.6 Constitutional - Awake and Alert, No apparent distress. Pleasant. Cooperative. HEENT - PER, EOMI. Tympanic membranes intact. Hyperemic throat without exudates. Heart - S1S2, RRR, No murmurs Lungs - Normal lung expansion, Normal respiratory effort, No respiratory distress. Tachypnea. Bilateral end-expiratory wheezes and rhonchi. No crackles. Abdomen - non tender. Extremities - no calf tenderness bilaterally, no swelling Musculoskeletal - Normal inspection, normal ROM Skin - Warm/Dry Neurological - Alert & oriented x3. No focal weakness grossly noted. Normal speech. Psychological - Appropriate affect Results Labs 05/25/24 19:50 05/25/24 19:50 Labs: Laboratory Results - last 24 hr 05/25/24 05/25/24 19:50 23:29 MCV 94.7 MCH 32.5 MCHC 34.3 RDW 11.9 Plt Count 374 D MPV 9.0 L Immature Gran % (Auto) 0.7 H Neut % (Auto) 55.0 Lymph % (Auto) 35.2 [place] % (Auto) 8.4 Eos % (Auto) 0.5 Baso % (Auto) 0.2 Lymph # (Auto) 3.7 [place] # (Auto) 0.9 Eos # (Auto) 0.1 Baso # (Auto) 0.0 Abs Immat Gran (auto) 0.07 H Absolute Neuts (auto) 5.8 Absolute Nucleated RBC 0.000 Nucleated RBC % (auto) 0.0 VBG pH 7.36 VBG pCO2 46 VBG pO2 34 VBG HCO3 26 VBG O2 Saturation 45.0 VBG Base Excess 0.5 Anion Gap 11 L Estim Creat Clear Calc 71.8 Estimated GFR > 60 Random Glucose 111 Calcium 8.5 D Total Bilirubin 0.2 AST 18 ALT 21 Alkaline Phosphatase 55 Total Protein 6.4 L Albumin 3.8 Influenza Type A (PCR) NEGATIVE Influenza Type B (PCR) NEGATIVE RSV RNA Qual (PCR) NEGATIVE SARS-CoV-2 RNA (RT-PCR) NEGATIVE Imaging Radiologist's Impressions: Impressions Chest X-Ray 05/25/24 19:39 IMPRESSION: 1. Stable interstitial prominence and pulmonary hyperexpansion which could indicate small airways disease and air trapping. 2. Decreased and now more streaky focal airspace opacities in the right middle lobe suggesting resolving infectious/inflammatory infiltrate and residual subsegmental atelectasis. Electronically signed by: Emma Najera MD 05/25/2024 09:33 PM [facility] Assessment and Plan (1) Pneumonia: Qualifiers: Pneumonia type: due to unspecified organism Laterality: right Lung location: middle lobe of lung Qualified Code(s): J18.9 - Pneumonia, unspecified organism Status: Acute (2) Ductal carcinoma in situ of left breast: Status: Acute (3) Hyponatremia: Status: Acute (4) Acute bronchitis: Qualifiers: Bronchitis organism: unspecified organism Qualified Code(s): J20.9 - Acute bronchitis, unspecified Status: Acute Plan Sherly Ocampo is a 48 y/o woman admitted with: Pneumonia (RML) associated with acute bronchitis, failing outpatient treatment + events of low O2 sats at home. Admit to hospitalist service. Pulse oximetry. Continue bronchodilator therapy, IV steroids and empiric IV antibiotic therapy with Zosyn. Antitussive therapy. Mild hyponatremia, 133. Likely secondary to above. Continue to monitor for now. Tobacco dependence. Tobacco cessation encouraged. Nicotine gums as needed for craving. Hx of left breath ductal carcinoma with DCIS s/p left wide excision of the left breast + left axillary sentinel node biopsy. Patient stopped taking tamoxifen because she forgot to fill the script. DVT prophylaxis: Lovenox Code status: Full Patient will need hospitalization for at least 2 midnights for pneumonia + bronchitis treatment with IV antibiotics, bronchodilator therapy and IV steroids as the patient failed outpatient treatment. Quality Stroke Does the patient have a stroke diagnosis?: No VTE Prior VTE?: No VTE Risk Level:: Medical - moderate - high VTE Device Contraindication: Treatment Not Indicated VTE Drug Contraindication: N/A - Med Ordered
[2024-05-25] MEDS: Albuterol Sulfate 5 MG, Albuterol Sulfate (0.083%) 2.5 MG 7.5 MG INHALE (23:44)
[2024-05-25 23:47] LABS: Lactic Acid 0.7 mmol/L (0.5-2.0)
[2024-05-25 23:49] VITALS: PULSE 96; RESP 20; O2SAT 93
[2024-05-25 23:59] VITALS: BP 120/79; PULSE 94; RESP 20; TEMP 36.7; O2SAT 92
[2024-05-26] VITALS (8 sets, daily range): BP systolic 125–147; BP diastolic 64–83; PULSE 81–106; RESP 16–20; TEMP 36.4–37.2; O2SAT 92–94; BMI 18.3
[2024-05-26] MEDS: 0.9 % Sodium Chloride 1,000 ML 999 ML IVCONT (00:03)
[2024-05-26] MEDS: Piperacillin Sodium/Tazobactam 3.375 GM in 0.9 % Sodium Chloride 50 ML IV ×4 (01:08→17:11)
[2024-05-26 04:41] LABS: Basophils Percent Auto 0.1 % (0-2); Hematocrit 39.5 % (37.0-47.0); Hemoglobin 13.4 g/dl (12.0-16.0); Imm Gran Abs Auto 0.06 X10*3/uL (0.00-0.03); Imm Gran Pct Auto 0.8 % (0.0-0.4); Lymphocytes Absolute Auto 0.5 X10*3/uL (1.2-4.9); Lymphocytes Percent Auto 6.6 % (20-40); MANUAL DIFF FLAG SCAN; Mean Corpuscular HGB Conc 33.9 g/dl (31.0-35.0); Mean Corpuscular Hemoglobin 32.4 pg (27.0-33.0); Mean Corpuscular Volume 95.4 fL (80.0-98.0); Mean Platelet Volume 9.2 fL (9.4-12.3); Monocytes Absolute Auto 0.1 X10*3/uL (0.1-1.2); Monocytes Percent Auto 1.3 % (2-11); Neutrophils Percent Auto 91.2 % (45-73); Platelet Count 356 X10*3/uL (160-400); Red Blood Count 4.14 X10*6/uL (4.20-5.50); Red Cell Distribution Width 11.9 % (11.0-16.0); SCAN SMEAR FLAG 1; White Blood Count 7.6 X10*3/uL (4.8-10.8)
[2024-05-26 05:00] LABS: Anion Gap 14 (12-20); Blood Urea Nitrogen 12 mg/dL (9-16); Calcium 8.6 mg/dL (8.4-10.2); Carbon Dioxide 21 mmol/L (22-29); Chloride 112 mmol/L (96-108); Creatinine Clr Calc Pharmacy 72.9; Estimated Glomerular Filt Rate > 60; Glucose Random 136 mg/dL (60-115); Magnesium 2.2 mg/dL (1.6-2.6); Potassium 4.3 mmol/L (3.3-5.1); SLIDE REVIEW VERIFIED; Sodium 143 mmol/L (135-145)
--- NOTE | 2024-05-26 09:39 | PHA.MEDREC ---
Pharmacy Consult ? Medication Reconciliation Pharmacy has completed the medication reconciliation. Pt reports not taking tamoxifen consistently for 3 weeks but should be taking it. However, they also report that they have been having side effects to the medication and will be talking to their provider regarding the medication.
[2024-05-26] MEDS: methylPREDNISolone Sod Succ 40 MG/ML VIAL IVPUSH (09:57)
[2024-05-26] MEDS: 0.9 % Sodium Chloride Flush 3 ML SYRINGE IVFLUSH ×2 (09:58→15:52)
[2024-05-26] MEDS: Albuterol/Iprat 2.5/0.5MG 3 ML AMPUL.NEB INHALE ×2 (11:22→15:12)
--- NOTE | 2024-05-26 13:34 | P.PNIM_ITS ---
Subjective Subjective Date of Service: 05/26/24 Interval History: No acute issues overnight. States breathing somewhat improved since admission Review of Systems Denies chest pain Admits to shortness of breath that has improved since admission Denies nausea vomiting diarrhea Denies fever chills Physical Exam 2 Vital Signs: Vital Signs: Last Vital Signs Temp 97.8 F 05/26/24 07:47 Pulse 91 05/26/24 11:25 Resp 18 05/26/24 11:25 BP 136/64 05/26/24 07:47 Pulse Ox 94 05/26/24 07:47 O2 Del Method Nasal Cannula 05/26/24 07:47 O2 Flow Rate 3 05/26/24 07:47 BMI result Body Mass Index 18.3 Const: Other: No acute distress Resp: Other: Diminished at bases with crackles right middle lobe Cardio: Other: No S4; positive S1-S2; no S3 murmurs rubs or gallops GI: Other: Soft nontender nondistended normoactive bowel sounds Extrem: Other: No edema bilaterally Objective Data Active Medications Acetaminophen (Acetaminophen 325 Mg Tablet) 975 mg PO Q6H PRN PRN Reason: Pain, Mild (Pain Scale 1-3), fever or headache Albuterol Sulfate (Albuterol Sulfate (0.083%) 2.5 Mg/3 Ml Vial.Neb) 2.5 mg INHALE Q2H PRN PRN Reason: Shortness of Breath/Wheezing Albuterol/Ipratropium (Albuterol/Iprat 2.5/0.5mg 3 Ml Ampul.Neb) 3 ml INHALE RQ4H WHILE AWAKE [facility] Last Admin: 05/26/24 11:22 Dose: 3 ml Documented By: CONSTANTINO Calcium Carbonate (Calcium Carbonate 750 Mg Tab.Chew) 750 mg PO Q4H PRN PRN Reason: Heartburn Enoxaparin Sodium (Enoxaparin Sodium 40 Mg/0.4 Ml Syringe) 40 mg SUBCUT Q24H [facility] Last Admin: 05/26/24 09:59 Dose: Not Given Documented By: MICHEL Non-Admin Reason: Patient Refused Guaifenesin/Dextromethorphan (Guaifenesin Dm 200/20/10 Ml 10 Ml Syrup) 10 ml PO Q8H PRN PRN Reason: cough Piperacillin Sod/Tazobactam (Sod 3.375 gm/ Sodium Chloride) 50 mls @ 100 mls/hr IV Q6H [facility] Last Admin: 05/26/24 12:54 Dose: 100 mls/hr Documented By: MICHEL Magnesium Hydroxide (Milk Of Magnesia 30 Ml Oral.Susp) 30 ml PO DAILY PRN PRN Reason: Constipation Melatonin (Melatonin 3 Mg Tablet) 6 mg PO BEDTIME PRN PRN Reason: Insomnia Methylprednisolone Sodium Succinate (Methylprednisolone Sod Succ 40 Mg/Ml Vial) 40 mg IVPUSH Q12H [facility] Last Admin: 05/26/24 09:57 Dose: 40 mg Documented By: MICHEL Nicotine Polacrilex (Nicotine Polacrilex Lozenge 2 Mg Lozenge) 2 mg BUCCAL Q2H PRN PRN Reason: Nicotine Cravings Sodium Chloride (0.9 % Sodium Chloride Flush 3 Ml Syringe) 3 ml IVFLUSH QSHIFT [facility] Last Admin: 05/26/24 09:58 Dose: 3 ml Documented By: MICHEL Labs 05/26/24 04:18 05/26/24 04:18 Labs: Laboratory Results - last 24 hr 05/25/24 05/25/24 05/25/24 19:50 23:25 23:29 MCV 94.7 MCH 32.5 MCHC 34.3 RDW 11.9 Plt Count 374 D MPV 9.0 L Immature Gran % (Auto) 0.7 H Neut % (Auto) 55.0 Lymph % (Auto) 35.2 [place] % (Auto) 8.4 Eos % (Auto) 0.5 Baso % (Auto) 0.2 Lymph # (Auto) 3.7 [place] # (Auto) 0.9 Eos # (Auto) 0.1 Baso # (Auto) 0.0 Abs Immat Gran (auto) 0.07 H Absolute Neuts (auto) 5.8 Absolute Nucleated RBC 0.000 Nucleated RBC % (auto) 0.0 Smear Tech's Comments VBG pH 7.36 VBG pCO2 46 VBG pO2 34 VBG HCO3 26 VBG O2 Saturation 45.0 VBG Base Excess 0.5 Anion Gap 11 L Estim Creat Clear Calc 71.8 Estimated GFR > 60 Random Glucose 111 Lactic Acid 0.7 Calcium 8.5 D Magnesium Total Bilirubin 0.2 AST 18 ALT 21 Alkaline Phosphatase 55 Total Protein 6.4 L Albumin 3.8 Influenza Type A (PCR) NEGATIVE Influenza Type B (PCR) NEGATIVE RSV RNA Qual (PCR) NEGATIVE SARS-CoV-2 RNA (RT-PCR) NEGATIVE 05/26/24 04:18 MCV 95.4 MCH 32.4 MCHC 33.9 RDW 11.9 Plt Count 356 MPV 9.2 L Immature Gran % (Auto) 0.8 H Neut % (Auto) 91.2 H Lymph % (Auto) 6.6 L [place] % (Auto) 1.3 L Eos % (Auto) 0.0 Baso % (Auto) 0.1 Lymph # (Auto) 0.5 L [place] # (Auto) 0.1 Eos # (Auto) 0.0 Baso # (Auto) 0.0 Abs Immat Gran (auto) 0.06 H Absolute Neuts (auto) 7.0 Absolute Nucleated RBC 0.000 Nucleated RBC % (auto) 0.0 Smear Tech's Comments VERIFIED VBG pH VBG pCO2 VBG pO2 VBG HCO3 VBG O2 Saturation VBG Base Excess Anion Gap 14 Estim Creat Clear Calc 72.9 Estimated GFR > 60 Random Glucose 136 H Lactic Acid Calcium 8.6 Magnesium 2.2 Total Bilirubin AST ALT Alkaline Phosphatase Total Protein Albumin Influenza Type A (PCR) Influenza Type B (PCR) RSV RNA Qual (PCR) SARS-CoV-2 RNA (RT-PCR) Assessment and Plan (1) Pneumonia: Status: Acute (2) Hyponatremia: Status: Acute Plan Sherly Ocampo is a 48 y/o woman admitted with worsening shortness of breath found to have right middle lobe pneumonia. 1. Right middle lobe pneumonia -ceftriaxone/azithromycin (1) -methylprednisolone 60 mg IV q.6 hours -DuoNebs Q 4 p.r.n. while awake 2. Hyponatremia -resolved -follow renals/divalents 3.Breast Ca -resume tamoxifen as outpatient Lovenox Full Patient will require ongoing hospitalization for IV antibiotics to treat community-acquired pneumonia Quality Stroke Does the patient have a stroke diagnosis?: No VTE Prior VTE?: No VTE Risk Level:: Medical - moderate - high VTE Device Contraindication: Treatment Not Indicated VTE Drug Contraindication: N/A - Med Ordered
[2024-05-26] MEDS: methylPREDNISolone Sod Succ 125 MG/2 ML VIAL 60 MG IVPUSH ×2 (15:52→21:03)
--- NOTE | 2024-05-26 16:23 | MHC.CM.PN ---
PT REPORTS SHE LIVES WITH HER AND CHILDREN AND IS INDEPENDENT WITH CARE SHE HAS A NEBULIZER FOR DME AND NO SERVICES SHE SAYS HER IS HER HCP, COPY REQUESTED PCP: ROBBIE LEWIS DCP: HOME NO SERVICES VIA PRIVATE TRANSPORT
[2024-05-27] MEDS: 0.9 % Sodium Chloride Flush 3 ML SYRINGE IVFLUSH ×2 (00:50→08:31)
[2024-05-27] MEDS: Piperacillin Sodium/Tazobactam 3.375 GM in 0.9 % Sodium Chloride 50 ML IV ×2 (00:53→06:44)
[2024-05-27] MEDS: methylPREDNISolone Sod Succ 125 MG/2 ML VIAL 60 MG IVPUSH ×2 (00:53→08:29)
[2024-05-27 02:54] VITALS: BP 124/79; PULSE 95; RESP 16; TEMP 36.1; O2SAT 94
[2024-05-27 07:45] VITALS: BP 142/65; PULSE 86; RESP 18; TEMP 36.8; O2SAT 92
[2024-05-27 07:52] LABS: Basophils Percent Auto 0.1 % (0-2); Hematocrit 41.3 % (37.0-47.0); Hemoglobin 13.9 g/dl (12.0-16.0); Imm Gran Abs Auto 0.22 X10*3/uL (0.00-0.03); Imm Gran Pct Auto 0.9 % (0.0-0.4); Lymphocytes Absolute Auto 0.8 X10*3/uL (1.2-4.9); Lymphocytes Percent Auto 3.4 % (20-40); MANUAL DIFF FLAG SCAN; Mean Corpuscular HGB Conc 33.7 g/dl (31.0-35.0); Mean Corpuscular Hemoglobin 32.1 pg (27.0-33.0); Mean Corpuscular Volume 95.4 fL (80.0-98.0); Mean Platelet Volume 9.1 fL (9.4-12.3); Monocytes Absolute Auto 0.3 X10*3/uL (0.1-1.2); Monocytes Percent Auto 1.3 % (2-11); Neutrophils Absolute Auto 22.2 x10*3/uL (2.0-8.3); Neutrophils Percent Auto 94.3 % (45-73); Platelet Count 419 X10*3/uL (160-400); Red Blood Count 4.33 X10*6/uL (4.20-5.50); Red Cell Distribution Width 11.9 % (11.0-16.0); SCAN SMEAR FLAG 1; White Blood Count 23.5 X10*3/uL (4.8-10.8)
[2024-05-27] MEDS: Albuterol/Iprat 2.5/0.5MG 3 ML AMPUL.NEB INHALE (07:58)
[2024-05-27 07:59] VITALS: PULSE 98; RESP 18; O2SAT 91
[2024-05-27 08:23] LABS: Anion Gap 11 (12-20); Blood Urea Nitrogen 11 mg/dL (9-16); Carbon Dioxide 27 mmol/L (22-29); Chloride 106 mmol/L (96-108); Creatinine Clr Calc Pharmacy 89.4; Estimated Glomerular Filt Rate > 60; Glucose Fasting 133 mg/dL (60-99); Sodium 140 mmol/L (135-145)
[2024-05-27 08:26] LABS: SLIDE REVIEW VERIFIED
--- NOTE | 2024-05-27 11:30 | P.DS_ITS ---
DS: Providers Provider Date of Service: 05/27/24 Date of admission: 05/25/24 23:38 Date of discharge: 05/27/24 Primary care physician: Brendan Lewis MD DS: Diagnosis Discharge Diagnosis (1) Pneumonia: Status: Acute (2) Hyponatremia: Status: Acute DS: Summary Hospital Course Hospital Course: History of presenting illness: Date of Service: 05/25/24 Attending physician on admission: Risa Shaikh Chief Complaint: Shortness of breaths Sherly Ocampo is a 48 years old woman with past medical history significant for left breath ductal carcinoma with DCIS s/p left wide excision of the left breast + left axillary sentinel node biopsy presents to the emergency department complaining of worsening shortness on breath over the last several days associated with productive cough, fullness to her ears and chest tightness. Did not report fevers or chills. Did not report any headache, palpitations or dizziness. Denied any acute GI symptoms. She is a tobacco smoker, smoked about 5 cigarettes per day. Denied alcohol abuse or illicit drug use. She was recently seen in the emergency department for same symptoms but refused hospitalization so she was discharged home to take a course of prednisone, azithromycin and albuterol which she completed. In the ED, she was found to have stable vital signs. Oxygen saturation is 95 on room air (while I was evaluating her). Blood workup showed no leukocytosis or lactic acidosis. There are no significant electrolyte imbalances except for mild hyponatremia 133. LFTs and renal function are normal. Viral testing for COVID-19, RSV and influenza is negative. CXR today showed stable interstitial prominence and pulmonary hyperexpansion which could indicate small airway dizziness and air trapping; and right middle lobe changes possible residual infectious/inflammatory process. ECG showed normal sinus rhythm without ischemic changes. ED Tx: Azithromycin 500 mg IV, albuterol 7.5 mg, ceftriaxone 1 g IV, NS 2 L bolus and Solu-Medrol 125 mg IV Hospital course: 48-year-old female patient admitted to [facility] for right middle lobe pneumonia after she failed outpatient antibiotic treatment with azithromycin and prednisone patient was treated with IV Zosyn and IV steroids with good response, patient shortness of breath resolved, blood culture showed no growth, oxygenation 94% on room air, sodium improved to 143, since patient is asymptomatic and hemodynamically stable she is being discharged home on Augmentin for 5 more days to finish course of community-acquired pneumonia, she is being discharged on 4 more days of prednisone 20 mg daily with food for hyperreactive airways with history of smoking she has been strongly advised to abstain from smoking recommend to continue as needed cough medication. Time Attestation Discharge Coordination Time (in mins): 36 Quality: Safe Use of Opioids Does Pt have an Active Cancer Diagnosis on the Problem List?: No Quality: Stroke Does the patient have a stroke diagnosis?: No Physical Exam Vital Signs: Vital Signs: Last Vital Signs Temp 98.3 F 05/27/24 07:45 Pulse 98 05/27/24 07:59 Resp 18 05/27/24 07:59 BP 142/65 H 05/27/24 07:45 Pulse Ox 92 05/27/24 07:45 O2 Del Method Room Air 05/27/24 07:45 O2 Flow Rate 3 05/26/24 07:47 BMI result Body Mass Index 18.3 Const: Other: General resting comfortably in no acute distress. Neck no JVD. CVS regular rate rhythm, Respiratory lungs clear to auscultation, no respiratory distress, no wheeze, no rhonchi. Gastrointestinal abdomen soft, non tender, bowel sounds audible, Extremities no edema. Neuro non focal Skin no rash Psych appropriate affect DS: Data Data Completed and Pending Labs on day of discharge: Laboratory Results - last 24 hr 05/27/24 07:16 WBC 23.5 H RBC 4.33 Hgb 13.9 Hct 41.3 MCV 95.4 MCH 32.1 MCHC 33.7 RDW 11.9 Plt Count 419 H MPV 9.1 L Immature Gran % (Auto) 0.9 H Neut % (Auto) 94.3 H Lymph % (Auto) 3.4 L [place] % (Auto) 1.3 L Eos % (Auto) 0.0 Baso % (Auto) 0.1 Lymph # (Auto) 0.8 L [place] # (Auto) 0.3 Eos # (Auto) 0.0 Baso # (Auto) 0.0 Abs Immat Gran (auto) 0.22 H Absolute Neuts (auto) 22.2 H Absolute Nucleated RBC 0.000 Nucleated RBC % (auto) 0.0 Smear Tech's Comments VERIFIED Sodium 140 Potassium 4.0 Chloride 106 Carbon Dioxide 27 Anion Gap 11 L BUN 11 Creatinine 0.62 Estim Creat Clear Calc 89.4 Estimated GFR > 60 Fasting Glucose 133 H Calcium 9.0 Preliminary micro results at discharge 05/25/24 23:33 Blood Culture - Preliminary Blood - Venous No growth after 24 hours. 05/25/24 23:26 Blood Culture - Preliminary Blood - Venous No growth after 24 hours. Discharge Plan Discharge Anticipated Discharge Date/Time: 05/27/24 11:03 Patient Disposition: Home, Self-Care Discharge Diagnosis: Community-acquired pneumonia Referrals: Brendan Lewis MD [Primary Care Provider] - 1 Week Discharge Medications: New amoxicillin-pot clavulanate 875-125 mg tablet 1 tab PO BID Qty: 10 0RF prednisone 20 mg tablet 20 mg PO DAILY Qty: 4 0RF Continued tamoxifen 20 mg Tablet 20 mg PO DAILY Qty: 30 30RF albuterol sulfate 2.5 mg /3 mL (0.083 %) solution for nebulization 2.5 mg inhalation QID PRN (Reason: shortness of breath or wheezing) Qty: 75 0RF guaifenesin 200 mg/5 mL liquid 200 mg PO Q4H PRN (Reason: cough) Qty: 118 0RF albuterol sulfate 90 mcg/actuation aerosol powdr breath activated 1 inh inhalation Q4H PRN (Reason: shortness of breath or wheezing) Discharge Orders: Discharge Order (Routine); Ordered 05/27/24 Ordered By: Gerri Cai Diet: Advance to usual diet Activity on Discharge: As tolerated Stand Alone Forms: Patient Portal Discharge page Print Language: Romansh Care Plan Goals: Right middle lobe pneumonia, take Augmentin 1 tablet twice daily for total 5 days Take cough medication as needed Take prednisone 20 mg 1 tablet daily with food for 5 days Strongly recommend to abstain from smoking Health Concerns: Take all medications as prescribed Plan of Treatment: Outpatient follow-up with primary care physician call for appointment Assessment: As above
--- NOTE | 2024-05-27 11:48 | MHC.CM.PN ---
PT WILL DC HOME TODAY WITH NO SERVICES VIA SELF TRANSPORT
--- OUTSIDE RECORDS SUMMARY | 2024-06-01 12:12 | XMS_ITS | Continuity of Care Document ---
Author Organization [facility] Address [address] [place] [address]- Care Team Providers Care Help Desk Specialist Name Role Phone Brendan Lewis MD Primary Care Physician Encounter [facility] [place] Date(s): 05/16/24 - 05/23/24 [facility] [address] [place], [place] [address] Encounter Diagnosis Acute serous otitis media, left ear(Discharge Diagnosis) - 05/16/24 Acute bronchitis due to other specified organisms(Discharge Diagnosis) - 05/16/24 Viral sinusitis(Discharge Diagnosis) - 05/16/24 Attending Physician: Erlin RAMIREZ [facility] Encounter Type: Office Visit Allergies, Adverse Reactions, Alerts Substance Criticality Severity Reaction Reaction Severity Status gabapentin C/O - a headach e Nausea present Tunnel vision Active Immunizations Given and Recorded Vaccine Date Status Refusal Reason tetanus/diphtheria/pertussis, acel(Tdap) 01/18/23 Given tetanus/diphtheria/pertussis, acel(Tdap) 09/21/12 Given SARS-CoV-2 (COVID-19) Ad26 vaccine 10/19/20 Given influenza virus vaccine, inactivated 1 06/22/17 Gi tylro influenza virus vaccine, inactivated 2 06/22/13 Gi tylor 1Admin Note: done @ [facility] form received 2Result Comment: [06/22/2013] given w/o incident...AA Medications Albuterol (Eqv-Proventil HFA) 90 mcg/inh inhalation aerosol 2 puffs, Inhalation, Every 6 hours, PRN Wheezing/Shortness of Breath, # 8.5 Gm, 1 Refills, Maintenance, 05/15/24 3:33:00 PM [facility][id number], Partial fill upon patient request if the prescription is for a schedule II opioid drug., 163, cm, 09/27/23 17:12:00 EDT, Height Start Date: 05/15/24 Status: Ordered Quantity: 8.5 Unit: g Repeat number: 2 albuterol 0.042% inhalation solution 3 mL = 1.25 mg, Neb, 4 times a day, PRN as needed, # 25 each, 0 Refills, Maintenance, 09/27/23 5:46:00 PM EDT, Solution, [facility] #[id number], Partial fill upon patient request if the prescription is for a schedule II opioid drug., 163, cm, 09/27/23 17:12:00 EDT, Height Start Date: 09/27/23 Status: Ordered Quantity: 25.0 Unit: each Repeat number: 1 Indication: Acute upper respiratory infection, unspecified mirtazapine 7.5 mg oral tablet 1 tablet, By Mouth, Daily at bedtime, # 30 tablet, 5 Refills, Maintenance, 07/06/22 12:58:00 PM [facility] #[id number], 163, cm, 11/17/20 18:40:00 EDT, Height Start Date: 07/06/22 Status: Ordered Quantity: 30.0 Unit: tablet Repeat number: 1 Problem List Condition Confirmation Course Effective Dates [...] ductal carcinoma of left breast, stage 1 [id number] 1 Confirmed 01/24/23 Active Sacroiliac joint pain Confirmed Active Underweight Confirmed Active 1s/p left breast lumpectomy by Dr. Jose Diagnosis Diagnosis Type Effective Dates Health Status Clinical Service Informant Acute serous otitis media, left ear Discharge Diagnosis 05/16/24 Acute bronchitis due to other specified organisms Discharge Diagnosis 05/16/24 Viral sinusitis Discharge Diagnosis 05/16/24 Vital Signs Most recent to oldest [Reference Range]: 1 2 Height 163 cm (05/16/24 8:48 AM) 163 cm (05/16/24 8:42 AM) Weight 46.4 kg (05/16/24 8:42 AM) Oxygen Saturation [94-100 %] 95 % (05/16/24 8:42 AM) Pulse Rate [55-90 bpm] 110 bpm *H* (05/16/24 8:42 AM) Body Mass Index [18.5-24.99 kg/m2] 17.46 kg/m2 *L* (05/16/24 8:42 AM) Blood Pressure [90-138/55-84 mm Hg] 127/ 71mm Hg (05/16/24 8:48 AM) 171/77mm Hg *H* (05/16/24 8:42 AM) Mode of Delivery (Oxygen) Room air (05/16/24 8:42 AM) Blood pressure sites Arm, right (05/16/24 8:48 AM) Arm, right (05/16/24 8:42 AM) Dry Weight 46.4 kg (05/16/24 8:42 AM) Weight Obtained Via Standing scale (05/16/24 8:42 AM) Dry Weight Obtained Via Standing scale (05/16/24 8:42 AM) Social History Social History Type Response Smoking Status Current some day smo ker; Tobacco user in household: No; Type: Cigarettes; Previous treatment: Medications; Interested in cessation: Yes; Tobacco use times per day: 6; Number of years: 20; Total pack years: 110; Cessation attempts: 10; entered on: 06/22/13 Sex Sex Representation Female (finding) Note * Theodora Venegas: PERFORM Event Display: Patient Education/Instruction Authored Date: Ambulatory Adult Visit Summary [facility] [address] [place] [address] Name: VANIA ROCK : 1975?? Visit: 05/16/2024 08:37?? Ambulatory Visit Instructions ?? Your Care Team Primary Care Provider Brendan Lewis MD? This Visit Provider Alen Kern MD Vitals Signs Pulse Rate:??110 bpm??High Height: 163 cm Systolic Blood Pressure: 127 mm Hg Weight: 46.4 kg Diastolic Blood Pressure: 71 mm Hg Body Mass Index:??17.46 kg/m2??Low Oxygen Saturation: 95 % Body surface area: 1.45 Medications The list below reflects the information in our records and provided by you today along with any changes made during this visit. Please continue your medications until treatment is completed or stopped by your provider. If this is different from the information you have or there are other questions,please contact the prescribing provider. What How Much When Why Instructions New Amoxicillin-Clavulanate (Augmentin 875 mg-125 mg oral tablet) 1 tab(s) Oral Every 12 hours Duration: 7 Days with food or milk ?? Pickup at [facility] #[id number] Unchanged Albuterol (Albuterol (Eqv-Proventil HFA) 90 mcg/ inh inhalation aerosol) 2 puff(s) Inhalation Every 6 hours as needed for Wheezing/Shortness of Breath Unchanged Albuterol (albuterol 0.042% inhalation solution) 3 Milliliter Nebulized inhalation 4 times a day as needed for as needed Acute URI Unchanged Mirtazapine (mirtazapine 7.5 mg oral tablet) 1 tab(s) Oral Daily at Bedtime Pharmacy Information [facility] #[id number]: [address], [place] [id number] [phone] Medications and Immunizations Administered Medications Given During Visit No medications given during this visit.?? Allergies (NKA means No Known Allergies) gabapentin??(C/O - a headache, Nausea present, Tunnel vision) Common Emergency Awareness Tips IS IT A STROKE? Act FAST and Check for these signs: FACE Does the face look uneven? ARM Does one arm drift down? SPEECH Does their speech sound strange? TIME Call at any sign of stroke ?? Heart Attack Signs Chest discomfort: Most heart attacks involve discomfort in the center of the chest and lasts more than a few minutes, or goes away and comes back. It can feel like uncomfortable pressure, squeezing, fullness or pain. Discomfort in upper body: Symptoms can include pain or discomfort in one or both arms, back, neck, jaw or stomach. Shortness of breath: With or without discomfort. Other signs: Breaking out in a cold sweat, nausea, or lightheaded. Remember, MINUTES DO MATTER. If you experience any of these heart attack warning signs, call to get immediate medical attention! ?? Smoking can increase your chances of developing chronic health problems and can cause harmful effects to other family members in your house. If you smoke, you are strongly encouraged to quit. Please call [facility] [employer] at [phone] or [phone]-[employer] (7230) or log in to [email or web address] for referrals to smoking cessation programs. ?? The National Suicide Prevention Hotline is available 31/01 if you or someone you know needs to find a reason to keep living. By calling 9-380-636-[facility] (9934) you'll be connected to a skilled, trained counselor at a crisis center in your area. [facility] Portal You can view and manage your care through the patient portal or by using a health care eva of your choosing. [employer] is a website that allows you to securely view your medical information including your hospital discharge summary, office visit summaries, medications and follow-up visits. You can also request appointments, renew medications, and request access to your medical information using a health care eva of your choosing, or just ask a question. You can enroll at [email or web address] or register during your next office visit. [facility], in keeping with [facility] guidance, no longer requires face masks for staff, patientsor visitors in most situations. Similiar to time spent indoors at other locations, there is the chance that you were exposed to repiratory viruses during your time with us (such as flu or COVID-19). If you develop symptoms concerning for a viral respiratory infection, please seek testing (and treatment if indicated) from your medical provider or home test kit. ?? Disclaimer: The information provided is of a general nature and is intended to be used in conjunction with the recommendations and advice of your health care practitioner. Every effort has been made to ensure that the information provided is accurate and complete at the time it is provided to you however, as your needs change, or, as new information becomes available, different or additional instructions may be required. ?? If you have questions, please consult with your primary care provider or pharmacist, as appropriate. This information is not intended to serve as substitution for assessment and evaluation by a qualified health care provider. If you do not have a primary care provider, you may find a [facility] provider by calling [facility] at [phone]. Patient Care team information Care Team Personnel Name: Brendan Lewis MD Position: [facility] Physician - Primary Care Member Role: PCP Address: [address] [place] [address] Adult & Pediatric Medicine [address] Telecom: Name: Jacquelyn Olvera RN Position: [facility] AMB Nurse Member Role: Primary Care Nurse Care Team Related Persons Name: MICHELINE ROCK Insurance Providers Guarantor name: VANIA ROCK Health Plan Information #: 1 Payer: [employer] Member Number: [id number] Policy Number: NA Group Number: [id number] Health Plan Information #: 2 Payer: [employer] Member Number: [id number] Policy Number: NA Group Number: [id number]
--- OUTSIDE RECORDS SUMMARY | 2024-06-01 12:13 | XMS_ITS | Continuity of Care Document ---
Author Organization [facility] Address [address] [place] [address]- Care Team Providers Care Labview Programmer Name Role Phone Brendan Lewis MD Primary Care Physician [place] [facility] [place](s): 11/02/23 - 12/02/23 [facility] [address] [place], [place] [address] Allergies, Adverse Reactions, Alerts Substance Reaction Severity [...] 0 Refills, Maintenance, 09/27/23 17:46:00 EDT, Solution, [facility] #[id number], Partial fill upon patient request if the prescription is for a schedule II opioid drug., 163, cm, 09/26... Start Date: 09/27/23 Status: Ordered mirtazapine 7.5 mg oral tablet 1 tablet, By Mouth, Daily at bedtime, # 30 tablet, 5 Refills, Maintenance, 07/06/22 12:58:00 EST, [facility] #[id number], 163, cm, 11/17/20 18:40:00 EDT, Height Start [...] ductal carcinoma of left breast, stage 1 [id number] 1 Confirmed 01/24/23 Active Sacroiliac joint pain [...] Team Personnel Name: Brendan Lewis MD Position: [facility] Physician - Primary Care Member Role: PCP Address: Address: [address] [place] [address] Adult & [place] [address]- Name: Jacquelyn Olvera RN Position: [facility] AMB Nurse Member Role: Primary Care Nurse Care Team Related Persons Name: MICHELINE ROCK Address: [address] [address]
== END 2024-05-27 12:28 | disposition home or self-care (01) | DRG 139 ==
LOC: HO.ED 23:07 → HO.EDOVER 23:51 → HO.S3 05-26 06:11
PROVIDERS: Hospitalist; Nurse Practitioner Family; Admitting Provider Internal Medicine; Emergency Provider Emergency Medicine; PCP Internal Medicine; Visit Provider Hospitalist
DX: J18.9 Pneumonia, unspecified organism (principal); C50.912 Malignant neoplasm of unspecified site of left female breast; F17.210 Nicotine dependence, cigarettes, uncomplicated; Z20.822 Contact with and (suspected) exposure to COVID-19; Z91.148 Patient's other noncompliance with medication regimen for other reason; Z71.6 Tobacco abuse counseling; Z79.810 Long term (current) use of selective estrogen receptor modulators (SERMs); Z79.899 Other long term (current) drug therapy
CPT/HCPCS: 0241U; 36415; 71046; 80048; 80053; 82803; 83605; 83735; 85025; 87040; 93005; 94640; 99285; J0456; J0696; J1650; J2543; J2919

== ENCOUNTER → 2024-05-25 19:21 | Outpatient (BNV) | payer BC, SELFPAY | PROVIDERS: Admitting Provider Internal Medicine; Emergency Provider Emergency Medicine; PCP Internal Medicine; Visit Provider Internal Medicine Cardiovascular Disease | DX: R07.9 Chest pain, unspecified (principal) | CPT/HCPCS: 93010 ==

== ENCOUNTER → 2024-05-25 23:38 | Outpatient (BNV) | payer BC, SELFPAY | PROVIDERS: Admitting Provider Internal Medicine; Emergency Provider Emergency Medicine; PCP Internal Medicine; Visit Provider Internal Medicine | DX: J18.9 Pneumonia, unspecified organism (principal); E87.1 Hypo-osmolality and hyponatremia | CPT/HCPCS: 99223; 99232; 99239 ==

== ENCOUNTER 2025-02-26 08:18 | Outpatient (AMB) | payer BC, SELFPAY ==
--- NOTE | 2025-02-26 08:23 | A.OFFVIS_ITS ---
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 Has not bled for 1 year. Currently is sexually active. She denies vaginal itching or irritation. She tries to eat healthy and stays active with exercise. History of breast cancer followed by oncology. Missed mammogram appointment, plans to call the department and rescheduled. Last pap smear 2022, negative. [facility] Medical History 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 Hx of abnormal cervical Pap smear Surgical History History of lumpectomy (03/21/23) History of lumpectomy of left breast (01/24/23) Hx of section Family History Mother History of breast cancer, Onset Age: 64 Paternal Aunt Ovarian cancer Social History Household Members: Spouse and Children Housing: House Alcohol intake: current Alcohol intake frequency: holidays/special occasions only Patient Tobacco Use Status: Current everyday Tobacco user Tobacco use type: Cigarette Cigarettes Per Day: 10 Second Hand Smoke Exposure: No Substance Use Type: Former Substance User service: No Current occupational status: unemployed Sexual orientation: Straight/Heterosexual Gender identity: Female Female Reproductive History Menstrual Age of Menarche: 11 Total pregnancies: 4 Full term: 1 Number of Living Children: 1 Date of last pap smear: 12/30/22 (neg pap and hpv) History of abnormal pap smear: Yes (09/28 ascus 10/30 ascus +hpv 11/29 colpo) Date of Mammogram: 12/31/22 History of abnormal mammogram: Yes (hx breast ca) Review of Systems Const All systems reviewed & are unremarkable except as noted in HPI and below Reports as per HPI Eyes Reports no additional complaints ENT Reports no additional complaints Card Reports no additional complaints Resp Reports no additional complaints GI Reports as per HPI and Reports no additional complaints Reports as per HPI Musc Reports no additional complaints Skin/Breast Reports as per HPI Neuro Reports no additional complaints Psych Reports no additional complaints Endo Reports no additional complaints Bienvenido/Lymph Reports no additional complaints Aller/Immun Reports no additional complaints Physical Exam Vital Signs: Last Vital Signs BP 134/82 02/26/25 08:24 BMI result Body Mass Index 17.8 Const General: cooperative, healthy appearing, no acute distress, well developed and alert Orientation/consciousness: patient oriented x3 HEENT Head: Yes normal to inspection Eyes General: appearance normal, both eyes and all related structures Neck Neck: Yes normal visual inspection Thyroid: Thyroid normal Chest Other: Left breast scar. Chest palpation & inspection: normal inspection of the chest and other (no puckering, dimpling, peau de orange, retraction, discharge, masses) Breast/axilla inspection: normal inspection of the breasts Breast/axilla palpation: normal palpation of the breasts Resp Effort & Inspection: normal respiratory effort GI Inspection: Yes normal to inspection Palpation (GI): Soft to palpation Rectal Exam - Female: deferred General: Yes bladder normal to palpation External Female Exam: normal external appearance and normal appearance of the urethra Speculum Exam - Vagina: normal appearance of the vagina, normal palpation and normal vaginal discharge Speculum Exam - Cervix: normal appearance of the cervix and normal palpation Bimanual exam- vagina & uterus: normal bimanual exam, normal palpation, uterine size normal, bladder normal to palpation, normal palpation and non-tender Bimanual Exam- Adnexa, other: no masses Skin General skin exam: no rashes or lesions noted Rashes: no rashes Neuro General: patient oriented x3 Cognition (Neuro): normal cognition Extrem General: Yes normal to inspection Psych Attitude: cooperative Thought process: Normal thought process present Assessment & Plan Assessment & Plan (1) Encounter for annual routine gynecological examination: Code(s): Z01.419 - Encounter for gynecological examination (general) (routine) without abnormal findings Category: Medical Plan Discussed: Current recommendations for pap smears per ASCCP guidelines. Breast awareness and periodic breast exams. Mammogram yearly. Call us soon as possible to schedule. Maintain a healthy lifestyle including a well balanced diet and routine exercise. Advised to call if any vaginal bleeding for a follow up in the office to rule out any abnormal pathology. Patient verbalizes understanding and agrees to the plan of care. All of her questions and concerns were addressed to the best of my ability. 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 This note is constructed using voice recognition software. While every effort has been made to ensure accuracy, marble carver errors may have been included. Coding Level of Care Code Est Pt Prev Care 40-64y(67623) Diagnoses Encounter for annual routine gynecological examination Z01.419
[2025-02-26 08:24] VITALS: BP 134/82; BMI 17.8
--- OUTSIDE RECORDS SUMMARY | 2025-02-26 08:57 | XMS_ITS | Clinical Summary ---
Author Organization [facility] Address [address] [place] [address] Phone Care Team Providers Care Track Repairer Helper Name Role Phone Unavailable Primary Care Provider Unavailabl e Surgical History Surgery Date Site/Laterality Comments OTHER SURGICAL HISTORY PROCEDURE: DENIES PREVIOUS SURGERY Medical History Medical History Date Comments Tobacco use disorder 12/22/2005 DX:Tobacco use disorder Family History Medical History Relation Name Comments Other: ovarian cancer Aunt 1 patern al Other: buergers disease Maternal Grandmother circulatory issues Other: fibromyalgia Mother Other: crohns disease Sister 1 Relation Name Status Comments Aunt 1 Aunt 2 Maternal Grandmother Mother Sister 1 Sister 2 Social History Tobacco Use Types Packs/Day Years Used Date Smoking Tobacco: Every Day Cigarettes Alcohol Use Standard Drinks/Week Comments Not Asked 0 (1 standard drink = 0.6 oz pur e alcohol) Comments Unknown Sex and Gender Information Value Date Recorded Sex Assigned at Not on file Legal Sex Female 9:00 PM EST Gender Identity Not on file Sexual Orientation Not on file Obstetrics History Plan of Treatment Health Maintenance Due Date Last Done Comments Breast Cancer Screening 1975 Hepatitis B Vaccines (1 of 3 - 19+ 3-dose series) 1996 Cervical Cancer Screening: P ap Smear 1998 Pneumococcal Vaccine: Pediat rics (0 to 5 Years) and At-Risk Patients (6 to 49 Years) (2 of 2 - PCV) 07/14/2011 07/14/2010 DTaP,Tdap,and Td Vaccines (2 - Td or Tdap) 07/14/2020 07/14/2010 Colorectal Cancer Screening: Colonoscopy 08/05/2023 HIV Screening 08/05/2023 Hepatitis C Screening 08/05/2023 Social Influencers of Health Screening 08/05/2023 COVID-19 Vaccine (1 - 2023-2 5 season) 2024 Depression Screening 07/11/2024 Influenza Vaccine (#1) 2025 07/14/2010 HIB Vaccines Aged Out No longer eligi ble based on patient's age to complete this topic HPV Vaccines Aged Out No longer eligi ble based on patient's age to complete this topic Hepatitis A Vaccines Aged Out No long er eligible based on patient's age to complete this topic IPV Vaccines Aged Out No longer eligi ble based on patient's age to complete this topic MMR Vaccines Aged Out No longer eligi ble based on patient's age to complete this topic Meningococcal ACWY Vaccine Aged Out N o longer eligible based on patient's age to complete this topic Meningococcal B Vaccine Aged Out No l onger eligible based on patient's age to complete this topic RSV Immunization Patients Un antonio 20 months Aged Out No longer eligible b ased on patient's age to complete this topic Varicella Vaccines Aged Out No longer eligible based on patient's age to complete this topic Insurance
== END 2025-02-26 09:58 | disposition home or self-care (01) ==
LOC: HO.HWS 08:18
PROVIDERS: PCP Internal Medicine; Visit Provider Advanced Practice Midwife
DX: Z01.419 Encounter for gynecological examination (general) (routine) without abnormal findings (principal)
CPT/HCPCS: 99396; 99459